=== PATIENT | male | born 1970 | race Caucasian/White ===

== ENCOUNTER 2021-12-16 19:42 | Inpatient (IN) | payer BC ==
[2021-12-16 19:53] VITALS: TEMP 97.9
[2021-12-16 20:28] LABS: Basophils # (A) 0.1 k/uL (0-0.2); Basophils % (A) 1 %; Eosinophils # (A) 0.1 k/uL (0-0.7); Eosinophils % (A) 2 %; HCT 47.6 % (39.0-53.0); Lymphocytes # (A) 2.2 k/uL (1.0-4.8); Lymphocytes % (A) 38 %; MCH 29.5 pg (25.0-35.0); MCHC 33.7 g/dL (31.0-37.0); MCV 87.6 fL (80.0-100.0); Mean Platelet Volume 8.1; Monocytes # (A) 0.4 k/uL (0-1.0); Monocytes % (A) 8 %; Neutrophils % (A) 50 %; Platelet Count 177 k/uL (150-450); RBC 5.43 m/uL (4.30-5.90); RDW 12.9 % (11.5-15.5); WBC 5.9 k/uL (3.8-10.6)
--- NOTE | 2021-12-16 20:36 | ED ---
General Adult HPI - General Chief complaint: Chest Pain Stated complaint: Chest Pain Time Seen by Provider: 12/16/21 20:33 Source: patient, RN notes reviewed Mode of arrival: wheelchair Limitations: no limitations - History of Present Illness Initial comments: This is a pleasant 51-year-old male with a questionable history of atrial fibrillation. Patient states she's been feeling weak and lightheaded today. Patient also states he is having some palpitations. Patient states he skipped his metoprolol. Denying any overt chest pain.Patient states in addition to the palpitations she was having some chest discomfort which actually has resolved at this point. Patient does not take a daily aspirin. History of SVT and atrial fibrillation. Not anticoagulated. No thyroid issues. Generalized weakness and lightheadedness, No headache, no fever or chills, no changes in vision or hearing, no sore throat or difficulty with speech, no neck pain, no chest pain or shortness of breath, no abdominal pain, no nausea or vomiting, no changes in urination or bowel movements, no numbness or tingling, no extremity pain, no skin rashes or lesions. NOTE that this patient had a events similar to this about 12 weeks ago when he was in [place]. Apparently he was diagnosed with SVT. Patient states he converted with adenosine. Patient then had a follow-up with Dr. Coffman here in [place]. He was put on metoprolol preventatively. It sounds like he is on 50 mg XL once a day. He did skip a dose today. Patient was asymptomatic prior to this happening. Patient also states he had a episode of "atrial fibrillation" about 20 years ago. Patient is not anticoagulated - Related Data Previous Rx's Medication Instructions Recorded Metoprolol Succinate (ER) [Toprol 50 mg PO DAILY #30 tab 12/17/21 XL] Allergies Allergy/AdvReac Type Severity Reaction Status Date / Time No Known Allergies Allergy Verified 12/16/21 21:48 Review of Systems ROS Statement: Those systems with pertinent positive or pertinent negative responses have been documented in the HPI. ROS Other: All systems not noted in ROS Statement are negative. Past Medical History Past Medical History: Atrial Fibrillation History of Any Multi-Drug Resistant Organisms: None Reported Past Surgical History: No Surgical Hx Reported Past Psychological History: No Psychological Hx Reported Smoking Status: Never smoker Past Alcohol Use History: Occasional Past Drug Use History: None Reported General Exam Limitations: no limitations General appearance: alert, in no apparent distress Head exam: Present: atraumatic, normocephalic, normal inspection Eye exam: Present: normal appearance, PERRL, EOMI. Absent: scleral icterus, conjunctival injection, periorbital swelling ENT exam: Present: normal exam, normal oropharynx, mucous membranes moist. Absent: normal external ear exam Neck exam: Present: normal inspection. Absent: tenderness, meningismus, lymphadenopathy Respiratory exam: Present: normal lung sounds bilaterally. Absent: respiratory distress, wheezes, rales, rhonchi, stridor, chest wall tenderness, accessory muscle use Cardiovascular Exam: Present: normal rhythm, irregular rhythm, normal heart sounds. Absent: systolic murmur, diastolic murmur, rubs, gallop, clicks GI/Abdominal exam: Present: soft, normal bowel sounds. Absent: distended, tende rness, guarding, rebound, rigid Extremities exam: Present: normal inspection, full ROM, normal capillary refill. Absent: tenderness, pedal edema, joint swelling, calf tenderness Back exam: Present: normal inspection Neurological exam: Present: alert, oriented X3, CN II-XII intact Psychiatric exam: Present: normal affect, normal mood Skin exam: Present: warm, dry, intact, normal color. 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 ] Respiratory 22 Rate Blood Pressure 123/71 O2 Sat by Pulse 98 Oximetry 12/16/21 12/17/21 12/17/21 23:23 01:44 06:16 Temperature Pulse Rate 86 89 67 Pulse Rate [ Car Unloader Helper ] Respiratory 18 20 16 Rate Blood Pressure 111/70 114/85 117/76 O2 Sat by Pulse 95 97 96 Oximetry 12/17/21 09:19 Temperature Pulse Rate 73 Pulse Rate [ Car Unloader Helper ] Respiratory 16 Rate Blood Pressure 126/96 O2 Sat by Pulse 98 Oximetry - Reevaluation(s) Reevaluation #1: 12/16/21 21:37 Medical record is reviewed Symptoms are improved here in the emergency department Patient is informed of results and questions answered Patient in no distress Reevaluation #2: 12/16/21 22:42 Case discussed with the on-call hospitalist from [facility]. Admitted to Dr. hurley EKG Findings - EKG Comments: EKG Findings:: EKG done in 1955 and regular attending physician shows atrial fibrillation with rapid ventricular response, rate of 149, no acute ST or T-wave changes. Normal axis. Normal intervals otherwise. Normal QRS. No comparison study Medical Decision Making - Medical Decision Making Patient presents with atrial fibrillation with RVR. Has a questionable history of atrial fibrillation versus SVT. It sounds wake he was at a [place] hospital about 4 weeks ago and had adenosine which converted his SVT. He was kept in the hospital overnight. 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 No other health issues. Has no primary care provider. Patient had chest discomfort which actually resolved prior to him coming in the waiting room. This had lasted an hour or so. The case was discussed in detail with ED attending physician. Presentation, findings, treatment plan discussed in detail. Patient was heparinized in the ER. Given a bolus of Cardizem. Cardizem drip was also home. I'm going to consider giving the patient his regular dose of metoprolol XL. The case was discussed in detail with ED attending physician. Presentation, findings, treatment plan discussed in detail. 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 - Lab Data Result diagrams: 12/17/21 05:42 12/17/21 05:42 Lab Results 12/16/21 12/16/21 12/16/21 Range/Units 20:14 20:14 20:14 WBC 5.9 (3.8-10.6) k/uL RBC 5.43 (4.30-5.90) m/uL Hgb 16.0 (13.0-17.5) gm/dL Hct 47.6 (39.0-53.0) % MCV 87.6 (80.0-100.0) fL MCH 29.5 (25.0-35.0) pg MCHC 33.7 (31.0-37.0) g/dL RDW 12.9 (11.5-15.5) % Plt Count 177 (150-450) k/uL MPV 8.1 Neutrophils % 50 % Lymphocytes % 38 % Monocytes % 8 % Eosinophils % 2 % Basophils % 1 % Neutrophils # 3.0 (1.3-7.7) k/uL Lymphocytes # 2.2 (1.0-4.8) k/uL Monocytes # 0.4 (0-1.0) k/uL Eosinophils # 0.1 (0-0.7) k/uL Basophils # 0.1 (0-0.2) k/uL PT 10.7 (9.0-12.0) sec INR 1.0 (<1.2) APTT 23.5 (22.0-30.0) sec D-Dimer <0.17 (<0.60) mg/L FEU Sodium 141 (137-145) mmol/L Potassium 4.1 (3.5-5.1) mmol/L Chloride 108 H (98-107) mmol/L Carbon Dioxide 21 L (22-30) mmol/L Anion Gap 12 mmol/L BUN 17 (9-20) mg/dL Creatinine 0.89 (0.66-1.25) mg/dL Est GFR (CKD-EPI)AfAm >90 (>60 ml/min/1.73 sqM) Est GFR (CKD-EPI)NonAf >90 (>60 ml/min/1.73 sqM) Glucose 111 H (74-99) mg/dL Calcium 9.0 (8.4-10.2) mg/dL Magnesium 1.9 (1.6-2.3) mg/dL Total Bilirubin 0.5 (0.2-1.3) mg/dL AST 41 (17-59) U/L ALT 54 H (4-49) U/L Alkaline Phosphatase 56 (38-126) U/L Total Creatine Kinase (55-170) U/L CK-MB (CK-2) (0.0-2.4) ng/mL CK-MB (CK-2) Rel Index Troponin I (0.000-0.034) ng/mL Total Protein 6.9 (6.3-8.2) g/dL Albumin 4.4 (3.5-5.0) g/dL TSH (0.465-4.680) mIU/L 12/16/21 12/16/21 Range/Units 20:14 20:14 WBC (3.8-10.6) k/uL RBC (4.30-5.90) m/uL Hgb (13.0-17.5) gm/dL Hct (39.0-53.0) % MCV (80.0-100.0) fL MCH (25.0-35.0) pg MCHC (31.0-37.0) g/dL RDW (11.5-15.5) % Plt Count (150-450) k/uL MPV Neutrophils % % Lymphocytes % % Monocytes % % Eosinophils % % Basophils % % Neutrophils # (1.3-7.7) k/uL Lymphocytes # (1.0-4.8) k/uL Monocytes # (0-1.0) k/uL Eosinophils # (0-0.7) k/uL Basophils # (0-0.2) k/uL PT (9.0-12.0) sec INR (<1.2) APTT (22.0-30.0) sec D-Dimer (<0.60) mg/L FEU Sodium (137-145) mmol/L Potassium (3.5-5.1) mmol/L Chloride (98-107) mmol/L Carbon Dioxide (22-30) mmol/L Anion Gap mmol/L BUN (9-20) mg/dL Creatinine (0.66-1.25) mg/dL Est GFR (CKD-EPI)AfAm (>60 ml/min/1.73 sqM) Est GFR (CKD-EPI)NonAf (>60 ml/min/1.73 sqM) Glucose (74-99) mg/dL Calcium (8.4-10.2) mg/dL Magnesium (1.6-2.3) mg/dL Total Bilirubin (0.2-1.3) mg/dL AST (17-59) U/L ALT (4-49) U/L Alkaline Phosphatase (38-126) U/L Total Creatine Kinase 301 H (55-170) U/L CK-MB (CK-2) 2.9 H (0.0-2.4) ng/mL CK-MB (CK-2) Rel Index 1.0 Troponin I <0.012 (0.000-0.034) ng/mL Total Protein (6.3-8.2) g/dL Albumin (3.5-5.0) g/dL TSH 0.805 (0.465-4.680) mIU/L - Radiology Data Radiology results: report reviewed, image reviewed Critical Care Time Critical Care Time: Yes (30) Critical Care Time: Atrial fibrillation with rapid ventricular response. Heart rate between 140 and 160. Required Cardizem drip. Admitted to Dr. hurley. Cardiology consultation initiated Disposition Clinical Impression: Atrial fibrillation with RVR, Chest pain Disposition: HOME SELF-CARE Condition: Fair Is patient prescribed a controlled substance at d/c from ED?: No Time of Disposition: 21:38 Decision to Admit Reason: Admit from EC Decision Time: 21:38
[2021-12-16 20:44] LABS: ALT 54 U/L (4-49); AST 41 U/L (17-59); African American GFR (CKD) >90 (>60 ml/min/1.73 sqM); Albumin 4.4 g/dL (3.5-5.0); Alkaline Phosphatase 56 U/L (38-126); Anion Gap 12 mmol/L; Blood Urea Nitrogen 17 mg/dL (9-20); Carbon Dioxide 21 mmol/L (22-30); Chloride 108 mmol/L (98-107); Creatine Kinase 301 U/L (55-170); Glucose 111 mg/dL (74-99); Magnesium 1.9 mg/dL (1.6-2.3); Non-African American GFR(CKD) >90 (>60 ml/min/1.73 sqM); Potassium 4.1 mmol/L (3.5-5.1); Sodium 141 mmol/L (137-145); Total Bilirubin 0.5 mg/dL (0.2-1.3); Total Protein 6.9 g/dL (6.3-8.2)
[2021-12-16 20:56] LABS: Creatine Kinase MB 2.9 ng/mL (0.0-2.4); Troponin I <0.012 ng/mL (0.000-0.034)
[2021-12-16] MEDS ORDERED: DILTIAZEM 5 MG/ML 5 ML VIAL IVP STA (20:57)
[2021-12-16 21:00] LABS: Partial Thromboplastin Time 23.5 sec (22.0-30.0); Prothrombin Time 10.7 sec (9.0-12.0)
[2021-12-16] MEDS ORDERED: DILTIAZEM 125 MG in SODIUM CHLORIDE 0.9% 100 ML IV SCH (21:00)
[2021-12-16] MEDS ORDERED: ASPIRIN 81 MG PO STA (21:00)
--- NOTE | 2021-12-16 21:18 | XR ---
EXAMINATION TYPE: XR chest 2V DATE OF EXAM: 12/16/2021 COMPARISON: NONE HISTORY: Weakness TECHNIQUE: 2 views FINDINGS: Heart and mediastinum are normal. Lungs are clear. Diaphragm is normal. Bony thorax appears normal. There are chest leads. IMPRESSION: Normal chest.
[2021-12-16] MEDS ORDERED: DILTIAZEM DRIP BOLUS FROM BAG 1 MG SOLN IV ONE (21:24)
[2021-12-16] MEDS ORDERED: HEPARIN SODIUM 1,000 UN/ML (10ML VL) IV ONE (21:38)
[2021-12-16] MEDS ORDERED: HEPARIN SODIUM 1,000 UN/ML (10ML VL) IV PRN (21:38)
[2021-12-16] MEDS ORDERED: HEPARIN SOD,PORK IN 0.45% NACL 25,000 UNIT in 0.45% NACL 1 250ML.BAG IV SCH (21:45)
[2021-12-16] MEDS ORDERED: NALOXONE 0.4 MG/ML 1 ML VIAL IV PRN (22:39)
[2021-12-16] MEDS ORDERED: MORPHINE SULFATE 4 MG/ML SYRINGE IV PRN (22:39)
[2021-12-16] MEDS ORDERED: ACETAMINOPHEN TAB 325 MG TAB PO PRN (22:39)
[2021-12-16] MEDS ORDERED: ACETAMINOPHEN TAB 500 MG TAB PO STA (22:56)
[2021-12-16] MEDS ORDERED: IBUPROFEN 400 MG TAB PO STA (22:56)
[2021-12-16] MEDS: SODIUM CHLORIDE 0.9% 1,000 ML IV SCH (23:22)
[2021-12-17 06:17] VITALS: RESP 16
[2021-12-17 06:30] LABS: Basophils % (A) 1 %; Eosinophils # (A) 0.1 k/uL (0-0.7); Eosinophils % (A) 2 %; HCT 45.4 % (39.0-53.0); HGB 14.6 gm/dL (13.0-17.5); Lymphocytes # (A) 2.4 k/uL (1.0-4.8); Lymphocytes % (A) 45 %; MCH 28.8 pg (25.0-35.0); MCHC 32.2 g/dL (31.0-37.0); MCV 89.4 fL (80.0-100.0); Monocytes # (A) 0.4 k/uL (0-1.0); Monocytes % (A) 7 %; Neutrophils # (A) 2.4 k/uL (1.3-7.7); Neutrophils % (A) 44 %; Platelet Count 150 k/uL (150-450); RBC 5.08 m/uL (4.30-5.90); WBC 5.4 k/uL (3.8-10.6)
[2021-12-17 06:42] LABS: INR 1.1 (<1.2); Prothrombin Time 11.4 sec (9.0-12.0)
[2021-12-17 06:43] LABS: African American GFR (CKD) >90 (>60 ml/min/1.73 sqM); Anion Gap 4 mmol/L; Blood Urea Nitrogen 22 mg/dL (9-20); Calcium 8.3 mg/dL (8.4-10.2); Carbon Dioxide 27 mmol/L (22-30); Chloride 109 mmol/L (98-107); Glucose 89 mg/dL (74-99); Non-African American GFR(CKD) >90 (>60 ml/min/1.73 sqM); Potassium 4.3 mmol/L (3.5-5.1); Sodium 140 mmol/L (137-145)
[2021-12-17] MEDS ORDERED: METOPROLOL SUCCINATE (ER) 50 MG TAB.ER.24H PO SCH (09:00)
[2021-12-17] MEDS ORDERED: FAMOTIDINE 20 MG/2 ML VIAL IV SCH (09:00)
--- NOTE | 2021-12-17 10:28 | P.HPIM ---
History of Present Illness This is a pleasant 51 years old male with past medical history of atrial fibrillation on metoprolol only with no anticoagulation. Presents because of palpitation. Patient states that he has history of A. 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 Yesterday he missed his dose of metoprolol and that time during the day he felt palpitation, he checked his heart rate and was somewhere between 215 and 270/m, he felt lightheadedness when he came to the hospital but he denies any other dizziness, syncope, no chest pain or dyspnea, no coughing. No change in urine or bowel habits. No fever. He denies smoking or illicit drugs. Drinks alcohol occasionally. On admission patient Vitas looks stable however he has 1 episode of tachycardia at 167. Currently heart rate is 67 and rest of vitals are stable. And patient is afebrile unremarkable cbc, inr, bmp and liver enzymes. troponin i negative 3. tsh is normal 0.8. Chest x-ray: Process. EKG showing atrial fibrillation at 149 Admission he was started on Cardizem drip and heparin drip and normal saline at 75 mL/h Review of Systems CONSTITUTIONAL: No fever, no malaise, no fatigue. HEENT: No recent visual problems or hearing problems. Denied any sore throat. CARDIOVASCULAR: No orthopnea, PND, no palpitations, no syncope. PULMONARY: No shortness of breath, no cough, no hemoptysis. GASTROINTESTINAL: No diarrhea, no nausea, no vomiting, no abdominal pain. Normoactive bowel sounds. NEUROLOGICAL: No headaches, no weakness, no numbness. HEMATOLOGICAL: Denies any bleeding or petechiae. GENITOURINARY: Denies any burning micturition, frequency, or urgency. MUSCULOSKELETAL/RHEUMATOLOGICAL: Denies any joint pain, swelling, or any muscle pain. ENDOCRINE: Denies any polyuria or polydipsia. Past Medical History Past Medical History: Atrial Fibrillation History of Any Multi-Drug Resistant Organisms: None Reported Past Surgical History: No Surgical Hx Reported Past Psychological History: No Psychological Hx Reported Smoking Status: Never smoker Past Alcohol Use History: Occasional Past Drug Use History: None Reported Medications and Allergies Home Medications Medication Instructions Recorded Confirmed Type Metoprolol Succinate (ER) [Toprol 50 mg PO DAILY 12/16/21 12/16/21 History Xl] Allergies Allergy/AdvReac Type Severity Reaction Status Date / Time No Known Allergies Allergy Verified 12/16/21 21:48 Physical Exam Vitals: Vital Signs Temp Pulse Pulse Resp BP Pulse Ox 12/17/21 06:16 67 16 117/76 96 12/17/21 01:44 89 20 114/85 97 12/16/21 23:23 86 18 111/70 95 12/16/21 21:20 167 H 12/16/21 20:35 190 H 12/16/21 19:48 97.9 F 61 22 123/71 98 Intake and Output 12/16/21 12/17/21 12/17/21 22:59 06:59 14:59 Intake Total 74.667 Balance 74.667 Intake: Intake, IV Titration 74.667 Amount Heparin Sod,Pork in 0.45% 74.667 NaCl 25,000 unit In 0.45 % NaCl 1 250ml.bag @ 9. 2631 UNITS/KG/HR 10 mls/ hr IV .Q24H [facility] Rx#: [id number] Other: Weight 107.955 kg GENERAL: The patient is alert and oriented x3, not in any acute distress. Well developed, well nourished. HEENT: Pupils are round and equally reacting to light. EOMI. No scleral icterus. No conjunctival pallor. Normocephalic, atraumatic. No pharyngeal erythema. No thyromegaly. CARDIOVASCULAR: S1 and S2 present. No murmurs, rubs, or gallops. PULMONARY: Chest is clear to auscultation, no wheezing or crackles. ABDOMEN: Soft, nontender, nondistended, normoactive bowel sounds. No palpable organomegaly. MUSCULOSKELETAL: No joint swelling or deformity. EXTREMITIES: No cyanosis, clubbing, or pedal edema. NEUROLOGICAL: Gross neurological examination did not reveal any focal deficits. SKIN: No rashes. No petechiae Results CBC & Chem 7: 12/17/21 05:42 12/17/21 05:42 Labs: Abnormal Lab Results - Last 24 Hours (Table) 12/16/21 12/16/21 12/17/21 Range/Units 20:14 20:14 05:42 APTT (22.0-30.0) sec Chloride 108 H 109 H (98-107) mmol/L Carbon Dioxide 21 L (22-30) mmol/L BUN 22 H (9-20) mg/dL Glucose 111 H (74-99) mg/dL Calcium 8.3 L (8.4-10.2) mg/dL ALT 54 H (4-49) U/L Total Creatine Kinase 301 H (55-170) U/L CK-MB (CK-2) 2.9 H (0.0-2.4) ng/mL 12/17/21 Range/Units 05:42 APTT 35.0 H (22.0-30.0) sec Chloride (98-107) mmol/L Carbon Dioxide (22-30) mmol/L BUN (9-20) mg/dL Glucose (74-99) mg/dL Calcium (8.4-10.2) mg/dL ALT (4-49) U/L Total Creatine Kinase (55-170) U/L CK-MB (CK-2) (0.0-2.4) ng/mL Assessment and Plan Assessment: Paroxysmal atrial fibrillation with rapid ventricular rate, not on anticoagulation Non-adherence to therapy Plan: This is a pleasant 51 years old male presents with chest pain and atrial fibrillation Continue with metoprolol Continue with heparin drip Continue with Cardizem drip Check echocardiogram Cardiology consult Labs and medication were reviewed.. Continue same treatment. Continue with sym ptomatic treatment. Resume home medication. Monitor lytes and vitals. DVT and GI prophylaxis. Further recommendations depends on the clinical course of the patient DVT prophylaxis: heparin GI Prophylaxis: Pepcid PT/OT: Pending Prognosis is guarded
--- NOTE | 2021-12-17 12:15 | P.CRDCN ---
History of Present Illness History of present illness: HISTORY OF PRESENTING ILLNESS This is a pleasant 51-year-old male past medical history significant for SVT. He follows in the office with Dr. Coffman. We have been asked to see in consult ation for atrial fibrillation with RVR. Patient presents to the emergency department with complaints of palpitations and tachycardia. He was sitting at the dinner table yesterday with his family. After dinner, experienced palpitations. He checked his HR with his phone and it was in the 120s-140s. He went to the ER for further evaluation. He was found to be in atrial fibrillation with RVR. Started on IV Cardizem and IV Heparin. He converted to sinus mechanism. He did drink 2 beers yesterday, no further alcohol. He denies tobacco use. He was in [place] for a job a few months ago, he had palpitations, went to the ER and was diagnosed with SVT, was given adenosine and converted. He followed up with Dr. Coffman here. He denies history of CAD, hypertension, [place], Stroke, Diabetes, dyslipidemia. His family history includes father has history of A fib. DIAGNOSTICS EKG reveals atrial fibrillation HR 149 with RVR, non-specific T wave abnormalities. Telemetry tracings indicate sinus mechanism HR 60s Chest xray no acute cardiopulmonary process Laboratory reviewed, d-dimer negative, CBC unremarkable, troponin negative 3, sodium 140, potassium 4.3, BUN 22, serum creatinine 0.8, magnesium 2.0, TSH within normal limits Current home cardiac medications include metoprolol succinate 50mg daily. REVIEW OF SYSTEMS At the time of my exam: CONSTITUTIONAL: Denies fever or chills. CARDIOVASCULAR: Denies chest pain, shortness of breath, orthopnea, PND or palpitations. RESPIRATORY: Denies cough. GASTROINTESTINAL: Denies abdominal pain, diarrhea, constipation, nausea or vomiting. MUSCULOSKELETAL: Denies myalgias. NEUROLOGIC: Denies numbness, tingling, headacbe or weakness. ENDOCRINE: Denies fatigue, weight change, polydipsia or polyurina. GENITOURINARY: Denies burning, hematuria or urgency with micturation. HEMATOLOGIC: Denies history of anemia or bleeding. PHYSICAL EXAMINATION Blood pressure 126/96 HR 73 afebrile 98% on room air CONSTITUTIONAL: No apparent distress. HEENT: Head is normocephalic. Pupils are equal, round. Sclerae anicteric. Mucous membranes of the mouth are moist. No JVD. No carotid bruit. CHEST EXAMINATION: Lungs are clear to auscultation. No chest wall tenderness is noted on palpation or with deep breathing. HEART EXAMINATION: Regular rate and rhythm. S1, S2 heard. No murmurs, gallops or rub. ABDOMEN: Soft, nontender. Positive bowel sounds. EXTREMITIES: 2+ peripheral pulses, no lower extremity edema and no calf tenderness. NEUROLOGIC EXAMINATION: Patient is awake, alert and oriented x3. ASSESSMENT Paroxysmal atrial fibrillation with RVR -[id number] score 0 History of SVT PLAN Echocardiogram revealed EF 55-60%, no significant wall motion abnormalities. Continue metoprolol succinate Ok to discharge from a cardiology perspective and follow up outpatient with Dr. Coffman in 1 week. Nurse practitioner note has been reviewed by physician. Signing provider agrees with the documented findings, assessment, and plan of care. Past Medical History Past Medical History: Atrial Fibrillation History of Any Multi-Drug Resistant Organisms: None Reported Past Surgical History: No Surgical Hx Reported Past Psychological History: No Psychological Hx Reported Smoking Status: Never smoker Past Alcohol Use History: Occasional Past Drug Use History: None Reported Medications and Allergies Home Medications Medication Instructions Recorded Confirmed Type Metoprolol Succinate (ER) [Toprol 50 mg PO DAILY 12/16/21 12/16/21 History XL] Allergies Allergy/AdvReac Type Severity Reaction Status Date / Time No Known Allergies Allergy Verified 12/16/21 21:48 Physical Exam Vitals: Vital Signs Temp Pulse Pulse Resp BP Pulse Ox 12/17/21 06:16 67 16 117/76 96 12/17/21 01:44 89 20 114/85 97 12/16/21 23:23 86 18 111/70 95 12/16/21 21:20 167 H 12/16/21 20:35 190 H 12/16/21 19:48 97.9 F 61 22 123/71 98 Intake and Output 12/16/21 12/17/21 12/17/21 22:59 06:59 14:59 Intake Total 74.667 Balance 74.667 Intake: Intake, IV Titration 74.667 Amount Heparin Sod,Pork in 0.45% 74.667 NaCl 25,000 unit In 0.45 % NaCl 1 250ml.bag @ 9. 2631 UNITS/KG/HR 10 mls/ hr IV .Q24H [facility] Rx#: [id number] Other: Weight 107.955 kg Results 12/17/21 05:42 12/17/21 05:42 Cardiac Enzymes 12/16/21 12/16/21 12/16/21 Range/Units 20:14 20:14 23:46 AST 41 (17-59) U/L CK-MB (CK-2) 2.9 H (0.0-2.4) ng/mL Troponin I <0.012 0.018 (0.000-0.034) ng/mL 12/17/21 Range/Units 05:42 AST (17-59) U/L CK-MB (CK-2) (0.0-2.4) ng/mL Troponin I 0.030 (0.000-0.034) ng/mL Coagulation 12/16/21 12/17/21 Range/Units 20:14 05:42 PT 10.7 11.4 (9.0-12.0) sec APTT 23.5 35.0 H (22.0-30.0) sec CBC 12/16/21 12/17/21 Range/Units 20:14 05:42 WBC 5.9 5.4 (3.8-10.6) k/uL RBC 5.43 5.08 (4.30-5.90) m/uL Hgb 16.0 14.6 (13.0-17.5) gm/dL Hct 47.6 45.4 (39.0-53.0) % Plt Count 177 150 (150-450) k/uL Comprehensive Metabolic Panel 12/16/21 12/17/21 Range/Units 20:14 05:42 Sodium 141 140 (137-145) mmol/L Potassium 4.1 4.3 (3.5-5.1) mmol/L Chloride 108 H 109 H (98-107) mmol/L Carbon Dioxide 21 L 27 (22-30) mmol/L BUN 17 22 H (9-20) mg/dL Creatinine 0.89 0.88 (0.66-1.25) mg/dL Glucose 111 H 89 (74-99) mg/dL Calcium 9.0 8.3 L (8.4-10.2) mg/dL AST 41 (17-59) U/L ALT 54 H (4-49) U/L Alkaline Phosphatase 56 (38-126) U/L Total Protein 6.9 (6.3-8.2) g/dL Albumin 4.4 (3.5-5.0) g/dL Current Medications Generic Name Dose Route Start Last Admin Trade Name Freq PRN Reason Stop Dose Admin Acetaminophen 650 mg 12/16/21 22:39 Acetaminophen Tab 325 Mg Tab PO Q6HR PRN Mild Pain or Fever > 100.5 Heparin Sodium (Porcine) 0 unit 12/16/21 21:38 12/17/21 06:50 Heparin Sodium 1,000 Un/Ml (10ml Vl) IV 2,698.875 unit PER PROTOCOL PRN Administration Low PTT Protocol Diltiazem HCl 125 mg/ Sodium 125 mls @ 5 mls/hr 12/16/21 21:00 12/16/21 21:23 Chloride IV 5 mg/hr .Q24H IR[facility] 5 mls/hr Administration 5 MG/HR Heparin Sodium/Sodium Chloride 250 mls @ 10 mls/hr 12/16/21 21:45 12/17/21 0 6:49 25,000 unit/ Sodium Chloride IV 11.26 units/kg/hr .Q24H [facility] 12.156 mls/hr Titration Protocol 9.2631 UNITS/KG/HR Sodium Chloride 1,000 mls @ 75 mls/hr 12/16/21 22:45 12/16/21 23:22 Saline 0.9% IV 75 mls/hr .[id number] IRMA Administration Morphine Sulfate 4 mg 12/16/21 22:39 Morphine Sulfate 4 Mg/Ml Syringe IV Q4HR PRN Severe Pain Naloxone HCl 0.2 mg 12/16/21 22:39 Naloxone 0.4 Mg/Ml 1 Ml Vial IV Q2M PRN Opioid Reversal Intake and Output 12/16/21 12/17/21 12/17/21 22:59 06:59 14:59 Intake Total 74.667 Balance 74.667 Intake: Intake, IV Titration 74.667 Amount Heparin Sod,Pork in 0.45% 74.667 NaCl 25,000 unit In 0.45 % NaCl 1 250ml.bag @ 9. 2631 UNITS/KG/HR 10 mls/ hr IV .Q24H [facility] Rx#: [id number] Other: Weight 107.955 kg 12/17/21 05:42 12/17/21 05:42
--- NOTE | 2021-12-17 13:13 | CA ---
Transthoracic Echo Report Name: Lv Cruz Age: 51 Gender: M : 1970 Exam Date: 12/17/2021 09:37 Exam Location: [facility] Ht (in): 71 Wt (lb): 238 Ordering Physician: Dena Cooney Attending/Referring Phys: Debone Supervisor Ina Kebede RDCS Procedure CPT: Indications: a fib Cardiac Hx: Technical Quality: Good Contrast 1: Total Dose (mL): Contrast 2: Total Dose (mL): MEASUREMENTS (Male / Female) Normal Values 2D ECHO LV Diastolic Diameter PLAX 4.9 cm 4.2 - 5.9 / 3.9 - 5.3 cm LV Systolic Diameter PLAX 2.8 cm IVS Diastolic Thickness 0.9 cm 0.6 - 1.0 / 0.6 - 0.9 cm LVPW Diastolic Thickness 0.9 cm 0.6 - 1.0 / 0.6 - 0.9 cm LV Relative Wall Thickness 0.4 RV Internal Dim ED PLAX 2.1 cm LA Volume 49.4 cm??? 18 - 58 / 22 - 52 cm??? M-MODE Aortic Root Diameter MM 3.9 cm LA Systolic Diameter MM 2.5 cm LA Ao Ratio MM 0.6 MV E Point Septal Separation 1.9 cm AV Cusp Separation MM 1.9 cm DOPPLER AV Peak Velocity 95.6 cm/s AV Peak Gradient 3.7 mmHg MV Area PHT 4.6 cm??? MR Peak Velocity 90.4 cm/s MR Peak Gradient 3.3 mmHg Mitral E Point Velocity 78.6 cm/s Mitral A Point Velocity 80.8 cm/s Mitral E to A Ratio 1.0 MV Deceleration Time 165.3 ms MV E' Velocity 6.5 cm/s Mitral E to MV E' Ratio 12.0 TR Peak Velocity 136.2 cm/s TR Peak Gradient 7.4 mmHg Right Ventricular Systolic Press 12.4 mmHg FINDINGS Left Ventricle Normal Left ventricular size, wall thickness, systolic function with no obvious regional wall motion abnormalities. Normal Left ventricular diastolic filling pattern. Left ventricular ejection fraction is estimated at 55-60_ %. Right Ventricle The right ventricle is normal in size and function. Right Atrium The right atrium is normal in size. Left Atrium The left atrium is normal in size. Mitral Valve Structurally normal mitral valve without significant stenosis or prolapse. There is trace mitral regurgitation. Aortic Valve Structurally normal aortic valve without significant sclerosis or stenosis. There is no aortic regurgitation. Tricuspid Valve Structurally normal tricuspid valve without significant stenosis. Pulmonary artery systolic pressure is normal. Trace tricuspid regurgitation. Pulmonic Valve Structurally normal pulmonic valve without significant stenosis. There is no pulmonic regurgitation. Pericardium Normal pericardium without effusion. Aorta Normal aortic root dimension. CONCLUSIONS Normal left ventricular thickness Normal left ventricular function with ejection fraction 55-60% Trace mitral regurgitation Trace tricuspid regurgitation Previewed by: Dr. Candido De Jesus DO (Electronically Signed) Final Date: 17 Dec 2021 13:12
[2021-12-17 13:38] VITALS: BP 126/96; PULSE 73
[2021-12-17] MEDS: SODIUM CHLORIDE 0.9% 1,000 ML IV SCH (13:40)
== END 2021-12-17 17:39 | disposition home or self-care (01) | DRG 310 ==
LOC: EC 19:42 → 3SCARD 23:17
PROVIDERS: ADMIT Internal Medicine; ATTEND Internal Medicine
DX: I47.1 Supraventricular tachycardia (principal); I48.0 Paroxysmal atrial fibrillation; I08.1 Rheumatic disorders of both mitral and tricuspid valves; R00.2 Palpitations
CPT/HCPCS: 36415; 71046; 80048; 80053; 82550; 82553; 83735; 84443; 84484; 85025; 85379; 85610; 85730; 93005; 93306; 96374; 96375; 96376; 99291

== ENCOUNTER 2022-05-27 15:40 | Inpatient (IN) | payer BC ==
[2022-05-27] MEDS ORDERED: MIDAZOLAM 1 MG/ML 5 ML VIAL IV STA (16:16)
[2022-05-27] MEDS ORDERED: ADENOSINE 3 MG/ML 2 ML VIAL IVP STA (16:18)
--- NOTE | 2022-05-27 16:26 | ED ---
General Adult HPI - General Chief complaint: Chest Pain Stated complaint: Chest Pain,SOB Time Seen by Provider: 05/27/22 16:10 Source: patient, RN notes reviewed, old records reviewed Mode of arrival: wheelchair - History of Present Illness Initial comments: This is a 52-year-old male who presents emergency Department complaining that he has having a fast heart rate he feels short of breath per patient states this happened multiple times before and he said to come in to be given adenosine to convert her. Patient states she has an underlying rhythm of atrial fibrillation. Patient denies any recent fever chills or cough. Patient states he has some chest pressure. Patient denies abdominal pain. Patient denies any any vomiting or diarrhea. Patient denies any recent illness. Patient denies any lightheadedness or dizziness. Patient denies headache patient denies num bness weakness. - Related Data Previous Rx's Medication Instructions Recorded Metoprolol Succinate (ER) [Toprol 50 mg PO DAILY #30 tab 12/17/21 XL] Allergies Allergy/AdvReac Type Severity Reaction Status Date / Time No Known Allergies Allergy Verified 05/27/22 17:02 Review of Systems ROS Statement: Those systems with pertinent positive or pertinent negative responses have been documented in the HPI. ROS Other: All systems not noted in ROS Statement are negative. Past Medical History Past Medical History: Atrial Fibrillation History of Any Multi-Drug Resistant Organisms: None Reported Past Surgical History: No Surgical Hx Reported Past Psychological History: No Psychological Hx Reported Smoking Status: Never smoker Past Alcohol Use History: Occasional Past Drug Use History: None Reported General Exam - General Exam Comments Initial Comments: GENERAL: Patient is well-developed and well-nourished. Patient is nontoxic and well- hydrated and is in mild distress. ENT: Neck is soft and supple. No significant lymphadenopathy is noted. Oropharynx is clear. Moist mucous membranes. Neck has full range of motion without eliciting any pain. EYES: The sclera were anicteric and conjunctiva were pink and moist. Extraocular movements were intact and pupils were equal round and reactive to light. Eyelids were unremarkable. PULMONARY: Unlabored respirations. Good breath sounds bilaterally. No audible rales rhonchi or wheezing was noted. CARDIOVASCULAR: Patient is tachycardic at about 180 beats a minute. ABDOMEN: Soft and nontender with normal bowel sounds. SKIN: Skin is clear with no lesions or rashes and otherwise unremarkable. NEUROLOGIC: Patient is alert and oriented x3. Cranial nerves II through XII are grossly intact. Motor and sensory are also intact. Normal speech, volume and content. Symmetrical smile. MUSCULOSKELETAL: Normal extremities with adequate strength and full range of motion. LYMPHATICS: No significant lymphadenopathy is noted PSYCHIATRIC: Normal psychiatric evaluation. Course Vital Signs 05/27/22 05/27/22 05/27/22 15:59 16:23 16:33 Temperature 97.8 F Pulse Rate 222 H 152 H 133 H Respiratory 18 22 20 Rate Blood Pressure 125/94 104/66 96/70 O2 Sat by Pulse 97 96 97 Oximetry 05/27/22 18:02 Temperature Pulse Rate 113 H Respiratory 20 Rate Blood Pressure 114/90 O2 Sat by Pulse 97 Oximetry Medical Decision Making - Medical Decision Making EKG was interpreted by me. EKG shows supraventricular tachycardia 220 bpm QRS is 82 QT interval is 183 QTC is 287. EKG shows some ST segment depression in leads V4 V5 V6 Patient was given adenosine 6 mg and converted the patient into what appeared to be atrial fibrillation so repeat EKG was done. I interpreted the second EKG it showed atrial fibrillation with rapid ventricular response at 127 bpm QRS is a 70 Q-T intervals 266 QTC is 341. Patient's EKG shows no ST segment elevation or depression. Patient's heart rate didn't slow down and another EKG was done I interpreted this EKG. It shows atrial fibrillation with rapid ventricular response at 137 bpm QRS is 86 QT interval is 283 QTC is 363. Patient's EKG shows no ST segment elevation or depression. Chest x-ray as interpreted by me. Chest x-ray shows no acute normalities. I spoke with sounds physician's agreed to admit the patient admitted the patient I wrote admitting orders. - Lab Data Result diagrams: 05/27/22 16:21 05/27/22 16:21 Lab Results 05/27/22 05/27/22 05/27/22 Range/Units 16:21 16:21 16:21 WBC 7.8 (3.8-10.6) k/uL RBC 5.86 (4.30-5.90) m/uL Hgb 17.7 H (13.0-17.5) gm/dL Hct 50.3 (39.0-53.0) % MCV 85.8 (80.0-100.0) fL MCH 30.2 (25.0-35.0) pg MCHC 35.2 (31.0-37.0) g/dL RDW 12.9 (11.5-15.5) % Plt Count 178 (150-450) k/uL MPV 9.0 Neutrophils % 58 % Lymphocytes % 30 % Monocytes % 7 % Eosinophils % 3 % Basophils % 1 % Neutrophils # 4.5 (1.3-7.7) k/uL Lymphocytes # 2.4 (1.0-4.8) k/uL Monocytes # 0.6 (0-1.0) k/uL Eosinophils # 0.2 (0-0.7) k/uL Basophils # 0.1 (0-0.2) k/uL PT 10.8 (9.0-12.0) sec INR 1.0 (<1.2) APTT 24.5 (22.0-30.0) sec Sodium 144 (137-145) mmol/L Potassium 4.2 (3.5-5.1) mmol/L Chloride 111 H (98-107) mmol/L Carbon Dioxide 23 (22-30) mmol/L Anion Gap 10 mmol/L BUN 20 (9-20) mg/dL Creatinine 0.95 (0.66-1.25) mg/dL Est GFR (CKD-EPI)AfAm >90 (>60 ml/min/1.73 sqM) Est GFR (CKD-EPI)NonAf >90 (>60 ml/min/1.73 sqM) Glucose 124 H (74-99) mg/dL Calcium 9.3 (8.4-10.2) mg/dL Magnesium 2.2 (1.6-2.3) mg/dL Total Bilirubin 0.3 (0.2-1.3) mg/dL AST 48 (17-59) U/L ALT 79 H (4-49) U/L Alkaline Phosphatase 87 (38-126) U/L Troponin I (0.000-0.034) ng/mL Total Protein 7.3 (6.3-8.2) g/dL Albumin 4.7 (3.5-5.0) g/dL Urine Opiates Screen (NotDetected) Ur Oxycodone Screen (NotDetected) Urine Methadone Screen (NotDetected) Ur Propoxyphene Screen (NotDetected) Ur Barbiturates Screen (NotDetected) U Tricyclic Antidepress (NotDetected) Ur Phencyclidine Scrn (NotDetected) Ur Amphetamines Screen (NotDetected) U Methamphetamines Scrn (NotDetected) U Benzodiazepines Scrn (NotDetected) Urine Cocaine Screen (NotDetected) U Marijuana (THC) Screen (NotDetected) 05/27/22 05/27/22 Range/Units 16:21 16:56 WBC (3.8-10.6) k/uL RBC (4.30-5.90) m/uL Hgb (13.0-17.5) gm/dL Hct (39.0-53.0) % MCV (80.0-100.0) fL MCH (25.0-35.0) pg MCHC (31.0-37.0) g/dL RDW (11.5-15.5) % Plt Count (150-450) k/uL MPV Neutrophils % % Lymphocytes % % Monocytes % % Eosinophils % % Basophils % % Neutrophils # (1.3-7.7) k/uL Lymphocytes # (1.0-4.8) k/uL Monocytes # (0-1.0) k/uL Eosinophils # (0-0.7) k/uL Basophils # (0-0.2) k/uL PT (9.0-12.0) sec INR (<1.2) APTT (22.0-30.0) sec Sodium (137-145) mmol/L Potassium (3.5-5.1) mmol/L Chloride (98-107) mmol/L Carbon Dioxide (22-30) mmol/L Anion Gap mmol/L BUN (9-20) mg/dL Creatinine (0.66-1.25) mg/dL Est GFR (CKD-EPI)AfAm (>60 ml/min/1.73 sqM) Est GFR (CKD-EPI)NonAf (>60 ml/min/1.73 sqM) Glucose (74-99) mg/dL Calcium (8.4-10.2) mg/dL Magnesium (1.6-2.3) mg/dL Total Bilirubin (0.2-1.3) mg/dL AST (17-59) U/L ALT (4-49) U/L Alkaline Phosphatase (38-126) U/L Troponin I 0.019 (0.000-0.034) ng/mL Total Protein (6.3-8.2) g/dL Albumin (3.5-5.0) g/dL Urine Opiates Screen Not Detected (NotDetected) Ur Oxycodone Screen Not Detected (NotDetected) Urine Methadone Screen Not Detected (NotDetected) Ur Propoxyphene Screen Not Detected (NotDetected) Ur Barbiturates Screen Not Detected (NotDetected) U Tricyclic Antidepress Not Detected (NotDetected) Ur Phencyclidine Scrn Not Detected (NotDetected) Ur Amphetamines Screen Not Detected (NotDetected) U Methamphetamines Scrn Not Detected (NotDetected) U Benzodiazepines Scrn Not Detected (NotDetected) Urine Cocaine Screen Not Detected (NotDetected) U Marijuana (THC) Screen Not Detected (NotDetected) Critical Care Time Critical Care Time: Yes Total Critical Care Time: 35 Disposition Clinical Impression: SVT (supraventricular tachycardia), Atrial fibrillation with rapid ventricular response Disposition: ADMITTED IP TO THIS HOSP Is patient prescribed a controlled substance at d/c from ED?: No Referrals: None,Stated [Primary Care Provider] - 1-2 days Time of Disposition: 18:57
[2022-05-27] MEDS ORDERED: DILTIAZEM DRIP BOLUS FROM BAG 1 MG SOLN IV ONE (16:35)
[2022-05-27 16:40] LABS: Basophils # (A) 0.1 k/uL (0-0.2); Basophils % (A) 1 %; Eosinophils # (A) 0.2 k/uL (0-0.7); Eosinophils % (A) 3 %; HCT 50.3 % (39.0-53.0); HGB 17.7 gm/dL (13.0-17.5); Lymphocytes # (A) 2.4 k/uL (1.0-4.8); Lymphocytes % (A) 30 %; MCH 30.2 pg (25.0-35.0); MCHC 35.2 g/dL (31.0-37.0); MCV 85.8 fL (80.0-100.0); Monocytes # (A) 0.6 k/uL (0-1.0); Monocytes % (A) 7 %; Neutrophils # (A) 4.5 k/uL (1.3-7.7); Neutrophils % (A) 58 %; Platelet Count 178 k/uL (150-450); RBC 5.86 m/uL (4.30-5.90); RDW 12.9 % (11.5-15.5); WBC 7.8 k/uL (3.8-10.6)
[2022-05-27] MEDS ORDERED: DILTIAZEM 125 MG in SODIUM CHLORIDE 0.9% 100 ML IV SCH (16:45)
[2022-05-27 16:49] LABS: ALT 79 U/L (4-49); AST 48 U/L (17-59); African American GFR (CKD) >90 (>60 ml/min/1.73 sqM); Albumin 4.7 g/dL (3.5-5.0); Alkaline Phosphatase 87 U/L (38-126); Anion Gap 10 mmol/L; Blood Urea Nitrogen 20 mg/dL (9-20); Calcium 9.3 mg/dL (8.4-10.2); Carbon Dioxide 23 mmol/L (22-30); Chloride 111 mmol/L (98-107); Glucose 124 mg/dL (74-99); Magnesium 2.2 mg/dL (1.6-2.3); Non-African American GFR(CKD) >90 (>60 ml/min/1.73 sqM); Potassium 4.2 mmol/L (3.5-5.1); Sodium 144 mmol/L (137-145); Total Bilirubin 0.3 mg/dL (0.2-1.3); Total Protein 7.3 g/dL (6.3-8.2)
[2022-05-27 16:56] LABS: Partial Thromboplastin Time 24.5 sec (22.0-30.0); Prothrombin Time 10.8 sec (9.0-12.0)
--- NOTE | 2022-05-27 17:25 | XR ---
EXAMINATION TYPE: XR chest 2V DATE OF EXAM: 05/27/2022 COMPARISON: 12/16/2021 HISTORY: Chest pain TECHNIQUE: FINDINGS: Heart is normal. Lungs are clear. Diaphragm is normal. Bony thorax appears normal. There ar e chest leads. IMPRESSION: Normal chest. No change.
[2022-05-27 17:28] LABS: Amphetamine Screen,Urine Not Detected (NotDetected); Barbiturate Screen,Urine Not Detected (NotDetected); Benzodiazepines Screen,Urine Not Detected (NotDetected); Cocaine Screen,Urine Not Detected (NotDetected); Methadone Screen, Urine Not Detected (NotDetected); Opiate Screen,Urine Not Detected (NotDetected); Oxycodone Screen, Urine Not Detected (NotDetected); Phencyclidine Screen,Urine Not Detected (NotDetected); Tricyclic Antidepressant,Urine Not Detected (NotDetected); Urn Cannabinoid Scrn Not Detected (NotDetected)
[2022-05-27] MEDS ORDERED: HEPARIN SOD,PORK IN 0.45% NACL 25,000 UNIT in 0.45% NACL 1 250ML.BAG IV SCH (18:00)
--- NOTE | 2022-05-27 18:32 | P.HPIM ---
History of Present Illness H&P Date: 05/27/22 Patient is a 52-year-old male with PMH of atrial fibrillation that presents to the ED for shortness of breath and palpitations. Patient reports sudden onset of palpitations and shortness of breath that started today. He reports a recent viral illness (never tested for COVID 19) 3 weeks ago which he is recovering from. He was recently admitted in November 2021 for atrial fibrillation with RVR and discharged on metoprolol. He reports that his symptoms have been relatively under control since starting metoprolol but he does tend to miss his AM dose. He reports drinking 20 ounces of coffee daily. Patient denies any headache, lower extremity edema, nausea vomiting, fever chills, cough, chest pain, changes in urination or bowel habits. No changes in appetite or weight. He denies any dizziness, numbness/weakness/tingling of extremities. In the ED, is noted to have a heart rate in the 200s. Vital signs were otherwise stable. CBC showed hemoglobin of 17.7. Coagulation panel was negative. CMP showed chloride 111, glucose of 124, ALT of 79. Magnesium was 2.2. Troponin was 0.019. UDS was negative. Initial EKG showed SVT. He received 6 mg IV adenosine. Subsequent EKG showed atrial fibrillation with RVR. He was started on diltiazem and heparin drip and admitted for further workup a nd management of symptoms. General: non toxic, no distress, appears at stated age Derm: warm, dry Head: atraumatic, normocephalic, symmetric Eyes: EOMI, no lid lag, anicteric sclera Mouth: no lip lesion, mucus membranes moist Cardiovascular: Irregularly irregular, no murmur, positive DP pulse bilateral, Lungs: CTA bilateral, no rhonchi, no rales , no accessory muscle use Abdominal: soft, nontender to palpation, no guarding, no appreciable organomegaly Ext: no gross muscle atrophy, no edema, no contractures Neuro: no focal neuro deficits Psych: Alert, oriented, appropriate affect #Atrial fibrillation with RVR #Atrial flutter versus SVT #Transaminitis #Hyperglycemia #Obesity Patient presents with a rate in the 200s. Initially read as SVT, converted with adenosine 6 mg IV to atrial fibrillation with RVR. He is currently on a Cardizem drip. Heparin drip has been started by ED physician. His CHADVASC is 0. His heart rate is currently in the 100s. Maintain K > 4 and Mg > 2. Telemet ry monitoring. Echocardiogram done in November 2021 shows EF 55-60% with normal LV thickness, trace mitral and tricuspid regurgitation. TSH in November 2021 within normal limits. Cardiology has been consulted for futher management of this patient. Transaminitis is of unknown etiology. He will require workup in the outpatient setting. Obtain lipid panel. Obtain hemoglobin A1c. Patient will benefit from structured weight loss program. DVT prophylaxis: Heparin drip Discussed with: Patient, ED physician Anticipated discharge: 2-[address]: Home A total of 30 minutes was spent on the care of this complex patient more than 50% of the time was spent in counseling and care coordination. Patient names his decision maker if he cant make decisions for himself. Patient would like to be FULL CODE. Past Medical History Past Medical History: Atrial Fibrillation History of Any Multi-Drug Resistant Organisms: None Reported Past Surgical History: No Surgical Hx Reported Past Psychological History: No Psychological Hx Reported Smoking Status: Never smoker Past Alcohol Use History: Occasional Past Drug Use History: None Reported Medications and Allergies Home Medications Medication Instructions Recorded Confirmed Type Metoprolol Succinate (ER) [Toprol 50 mg PO DAILY #30 tab 12/17/21 05/27/22 Rx XL] Allergies Allergy/AdvReac Type Severity Reaction Status Date / Time No Known Allergies Allergy Verified 05/27/22 17:02 Physical Exam Vitals: Vital Signs Temp Pulse Resp BP Pulse Ox 05/27/22 18:02 113 H 20 114/90 97 05/27/22 16:33 133 H 20 96/70 97 05/27/22 16:23 152 H 22 104/66 96 05/27/22 15:59 97.8 F 222 H 18 125/94 97 Intake and Output 05/27/22 05/27/22 05/27/22 06:59 14:59 22:59 Other: Weight 108.862 kg Results CBC & Chem 7: 05/27/22 16:21 05/27/22 16:21 Labs: Abnormal Lab Results - Last 24 Hours (Table) 05/27/22 05/27/22 Range/Units 16:21 16:21 Hgb 17.7 H (13.0-17.5) gm/dL Chloride 111 H (98-107) mmol/L Glucose 124 H (74-99) mg/dL ALT 79 H (4-49) U/L
[2022-05-27] MEDS ORDERED: NITROGLYCERIN SL TABS 0.4 MG TAB SUBLINGUAL PRN (18:57)
[2022-05-27] MEDS ORDERED: MELATONIN 5 MG TABLET PO PRN (22:26)
[2022-05-28] MEDS ORDERED: ASPIRIN 325 MG TAB PO SCH (09:00)
[2022-05-28] MEDS ORDERED: AMIODARONE 200 MG TAB PO SCH (10:45)
[2022-05-28] MEDS ORDERED: METOPROLOL SUCCINATE (ER) 25 MG TAB.ER.24H PO SCH (10:45)
[2022-05-28 11:32] LABS: Chol/HDL Ratio 4.56 Ratio; LDL Cholesterol,Calculated 102.2 mg/dL (0.0-131.0)
--- NOTE | 2022-05-28 12:00 | P.PN ---
Subjective Progress Note Date: 05/28/22 Patient is a 52-year-old male with PMH of atrial fibrillation that presents to the ED for shortness of breath and palpitations. Patient reports sudden onset of palpitations and shortness of breath that started today. He reports a recent viral illness (never tested for COVID 19) 3 weeks ago which he is recovering from. He was recently admitted in November 2021 for atrial fibrillation with RVR and discharged on metoprolol. He reports that his symptoms have been relatively under control since starting metoprolol but he does tend to miss his AM dose. He reports drinking 20 ounces of coffee daily. In the ED, is noted to have a heart rate in the 200s. Vital signs were otherwise stable. CBC showed hemoglo bin of 17.7. Coagulation panel was negative. CMP showed chloride 111, glucose of 124, ALT of 79. Magnesium was 2.2. Troponin was 0.019. UDS was negative. Initial EKG showed SVT. He received 6 mg IV adenosine. Subsequent EKG showed atrial fibrillation with RVR. He was started on diltiazem and heparin drip and admitted for further workup and management of symptoms. Patient was seen and examined. No acute events overnight. HR currently in the 70s. He denies any chest pain, shortness of breath or palpitations. General: non toxic, no distress, appears at stated age Derm: warm, dry Head: atraumatic, normocephalic, symmetric Eyes: EOMI, no lid lag, anicteric sclera Mouth: no lip lesion, mucus membranes moist Cardiovascular: Irregularly irregular, no murmur Lungs: CTA bilateral, no rhonchi, no rales , no accessory muscle use Ext: no gross muscle atrophy, no edema, no contractures Neuro: no focal neuro deficits Psych: Alert, oriented, appropriate affect #Atrial fibrillation with RVR #Atrial flutter versus SVT #Troponin elevation #Transaminitis #Hyperglycemia #Obesity Patient presents with a rate in the 200s. Initially read as SVT, converted with adenosine 6 mg IV to atrial fibrillation with RVR. Cardizem drip discontinued and patient started Amiodarone and Metoprolol. Heparin drip discontinued. His CHADVASC is 0. His heart rate is currently in the 70s. Maintain K > 4 and Mg > 2. Telemetry monitoring. Echocardiogram done in November 2021 shows EF 55-60% with normal LV thickness, trace mitral and tricuspid regurgitation. Repeat Echocardiogram ordered. TSH in November 2021 within normal limits. Cardiology has been consulted for further management of this patient. Troponin elevation likely demand ischemia from AFib with RVR. Patient with no chest pain. Cardiology on board. Transaminitis is of unknown etiology. He will require workup in the outpatient setting. Lipid panel within normal limits. A1c within normal limits. Patient will benefit from structured weight loss program. Objective - Vital Signs Vital signs: Vital Signs Temp 97.3 F L 05/28/22 08:00 Pulse 83 05/28/22 08:00 Resp 17 05/28/22 08:00 BP 123/85 05/28/22 08:00 Pulse Ox 96 05/28/22 08:00 FiO2 Intake & Output 05/27/22 05/28/22 05/28/22 18:59 06:59 18:59 Intake Total 604.026 118.324 Balance 604.026 118.324 Weight 108.862 kg 108.862 kg Intake: Intake, IV Titration 64.026 118.324 Amount Heparin Sod,Pork in 0.45% 64.026 118.324 NaCl 25,000 unit In 0.45 % NaCl 1 250ml.bag @ 9.19 UNITS/KG/HR 10.004 mls/ hr IV .Q24H IRMA Rx#: [id number] Oral 540 Other: Voiding Method Toilet # Voids 2 - Labs CBC & Chem 7: 05/27/22 16:21 05/27/22 16:21 Labs: Abnormal Lab Results - Last 24 Hours (Table) 05/27/22 05/27/22 05/27/22 Range/Units 16:21 16:21 19:17 Hgb 17.7 H (13.0-17.5) gm/dL APTT (22.0-30.0) sec Chloride 111 H (98-107) mmol/L Glucose 124 H (74-99) mg/dL ALT 79 H (4-49) U/L Troponin I 0.092 H* (0.000-0.034) ng/mL HDL Cholesterol (40.00-60.00) mg/dL 05/27/22 05/28/22 05/28/22 Range/Units 23:39 00:14 07:36 Hgb (13.0-17.5) gm/dL APTT 31.4 H (22.0-30.0) sec Chloride (98-107) mmol/L Glucose (74-99) mg/dL ALT (4-49) U/L Troponin I 0.133 H* (0.000-0.034) ng/mL HDL Cholesterol 36.40 L (40.00-60.00) mg/dL 05/28/22 Range/Units 07:36 Hgb (13.0-17.5) gm/dL APTT 31.0 H (22.0-30.0) sec Chloride (98-107) mmol/L Glucose (74-99) mg/dL ALT (4-49) U/L Troponin I (0.000-0.034) ng/mL HDL Cholesterol (40.00-60.00) mg/dL
--- NOTE | 2022-05-28 12:18 | P.CRDCN ---
History of Present Illness History of present illness: This is a pleasant 51-year-old male past medical history significant for SVT and paroxysmal atrial fibrillation. He followed in the office with Dr. Coffman. We have been asked to see in consultation for atrial fibrillation with RVR and SVT. Patient presents to the emergency department with complaints of shortness of breath and palpitations. He states yesterday around 2 PM he had symptoms of palpitations. He went home and took his metoprolol dose and his palpitations are not improving. He had associated shortness of breath. Present to the emergency department for further evaluation. He states his symptoms are exactly the same when he's gone into A. fib with RVR or SVT in the past. In the emergency department patient was found to be in SVT with heart rates in the 220s, given 6 mg of IV adenosine, patient converted into atrial fibrillation. He states he was recently recovering from a viral illness 3 weeks ago. He states this is his 3rd time this has occurred. In Winter 2021 he was working in [employer] , he had palpitations, went to the ER and was diagnosed with SVT, was given adenosine and converted. He was also in the hospital in 11/2021 as well with A fib with RVR, he followed up with Dr. Coffman and reluctant to do an ablation at that time. Now patient is more amendable to an ablation. He works with the [employer] and has a difficult schedule. He denies any syncope or loss of consciousness. He denies history of CAD, hypertension, OH, Stroke, Diabetes, dyslipidemia. His family history includes father has history of CHF. Patient seen at bedside, he denies any chest pain, shortness of breath, weakness, dizziness, palpitations. He states he cannot feel when he is in A fib. DIAGNOSTICS EKG reveals SVT HR 220, repeat EKGs reveal atrial fibrillation Telemetry tracings indicate atrial fibrillation with controlled ventricular rates Chest xray no acute cardiopulmonary process Laboratory reviewed, initial troponin negative, repeat 0.92, 0.133, sodium 144, potassium 4.2, BUN 20, serum creatinine 2.9, magnesium 2.2, hemoglobin 17.7 Echocardiogram 11/2021 revealed EF 5560 percent, trace mitral regurgitation, trace tricuspid regurgitation Current home cardiac medications include metoprolol succinate 50mg daily. REVIEW OF SYSTEMS At the time of my exam: CONSTITUTIONAL: Denies fever or chills. CARDIOVASCULAR: Denies chest pain, shortness of breath, orthopnea, PND Reports palpitations, now resolved RESPIRATORY: Denies cough. GASTROINTESTINAL: Denies abdominal pain, diarrhea, constipation, nausea or vomiting. MUSCULOSKELETAL: Denies myalgias. NEUROLOGIC: Denies numbness, tingling, headacbe or weakness. ENDOCRINE: Denies fatigue, weight change, polydipsia or polyurina. GENITOURINARY: Denies burning, hematuria or urgency with micturation. HEMATOLOGIC: Denies history of anemia or bleeding. PHYSICAL EXAMINATION Blood pressure 126/96 HR 73 afebrile 98% on room air CONSTITUTIONAL: No apparent distress. HEENT: Head is normocephalic. Pupils are equal, round. Sclerae anicteric. Mucous membranes of the mouth are moist. No JVD. No carotid bruit. CHEST EXAMINATION: Lungs are clear to auscultation. No chest wall tenderness is noted on palpation or with deep breathing. HEART EXAMINATION: Irregular rate and rhythm. S1, S2 heard. No murmurs, gallops or rub. ABDOMEN: Soft, nontender. Positive bowel sounds. EXTREMITIES: 2+ peripheral pulses, no lower extremity edema and no calf tenderness. NEUROLOGIC EXAMINATION: Patient is awake, alert and oriented x3. ASSESSMENT Supraventricular tachycardia s/p adenosine Paroxysmal atrial fibrillation, -[id number] score 0 History of SVT PLAN Echocardiogram reviewed at bedside by Dr. De Jesus with normal LV systolic function. Recommend amiodarone 200mg BID and decrease metoprolol succinate 25mg daily Patient used to see Dr. Coffman, Recommend follow up with Dr. Cote for further evaluation of SVT and A fib with possible ablation as an outpatient. Patient is stable for discharge today. Office notified of the patient and will call patient with an appointment. Nurse practitioner note has been reviewed by physician. Signing provider agrees with the documented findings, assessment, and plan of care. Past Medical History Past Medical History: Atrial Fibrillation History of Any Multi-Drug Resistant Organisms: None Reported Past Surgical History: Orthopedic Surgery Past Anesthesia/Blood Transfusion Reactions: No Reported Reaction Past Psychological History: No Psychological Hx Reported Smoking Status: Never smoker Past Alcohol Use History: Occasional Past Drug Use History: None Reported - Past Family History Father Family Medical History: Congestive Heart Failure (CHF), Renal Disease Mother Family Medical History: Dementia Medications and Allergies Home Medications Medication Instructions Recorded Confirmed Type Amiodarone [Cordarone] 200 mg PO BID #120 tab 05/28/22 Rx Metoprolol Succinate (ER) [Toprol 25 mg PO DAILY #90 tab 05/28/22 Rx XL] Allergies Allergy/AdvReac Type Severity Reaction Status Date / Time No Known Allergies Allergy Verified 05/27/22 17:02 Physical Exam Vitals: Vital Signs Temp Pulse Pulse Resp BP BP Pulse Ox 05/28/22 03:31 97.9 F 81 16 105/66 95 05/27/22 23:16 98 F 84 16 107/77 96 05/27/22 21:20 97.7 F 96 18 122/89 98 05/27/22 19:47 88 16 121/97 98 05/27/22 18:02 113 H 20 114/90 97 05/27/22 16:33 133 H 20 96/70 97 05/27/22 16:23 152 H 22 104/66 96 05/27/22 15:59 97.8 F 222 H 18 125/94 97 Intake and Output 05/27/22 05/28/22 05/28/22 22:59 06:59 14:59 Intake Total 540 64.026 Balance 540 64.026 Intake: Intake, IV Titration 64.026 Amount Heparin Sod,Pork in 0.45% 64.026 NaCl 25,000 unit In 0.45 % NaCl 1 250ml.bag @ 9.19 UNITS/KG/HR 10.004 mls/ hr IV .Q24H [facility] Rx#: [id number] Oral 540 Other: Voiding Method Toilet Toilet # Voids 1 2 Weight 108.862 kg Results 05/27/22 16:21 05/27/22 16:21 Cardiac Enzymes 05/27/22 05/27/22 05/27/22 Range/Units 16:21 16:21 19:17 AST 48 (17-59) U/L Troponin I 0.019 0.092 H* (0.000-0.034) ng/mL 05/27/22 Range/Units 23:39 AST (17-59) U/L Troponin I 0.133 H* (0.000-0.034) ng/mL Coagulation 05/27/22 05/28/22 Range/Units 16:21 00:14 PT 10.8 (9.0-12.0) sec APTT 24.5 31.4 H (22.0-30.0) sec CBC 05/27/22 Range/Units 16:21 WBC 7.8 (3.8-10.6) k/uL RBC 5.86 (4.30-5.90) m/uL Hgb 17.7 H (13.0-17.5) gm/dL Hct 50.3 (39.0-53.0) % Plt Count 178 (150-450) k/uL Comprehensive Metabolic Panel 05/27/22 Range/Units 16:21 Sodium 144 (137-145) mmol/L Potassium 4.2 (3.5-5.1) mmol/L Chloride 111 H (98-107) mmol/L Carbon Dioxide 23 (22-30) mmol/L BUN 20 (9-20) mg/dL Creatinine 0.95 (0.66-1.25) mg/dL Glucose 124 H (74-99) mg/dL Calcium 9.3 (8.4-10.2) mg/dL AST 48 (17-59) U/L ALT 79 H (4-49) U/L Alkaline Phosphatase 87 (38-126) U/L Total Protein 7.3 (6.3-8.2) g/dL Albumin 4.7 (3.5-5.0) g/dL Current Medications Generic Name Dose Route Start Last Admin Trade Name Freq PRN Reason Stop Dose Admin Aspirin 325 mg 05/28/22 09:00 Aspirin 325 Mg Tab PO DAILY IRMA Diltiazem HCl 125 mg/ Sodium 125 mls @ 5 mls/hr 05/27/22 16:45 05/27/22 16:43 Chloride IV 5 mg/hr .Q24H IRMA 5 mls/hr Administration 5 MG/HR Heparin Sodium/Sodium Chloride 250 mls @ 10.004 mls/hr 05/27/22 18:00 05/28/22 00:47 25,000 unit/ Sodium Chloride IV 12.19 units/kg/hr .Q24H IRMA 13.27 mls/hr Titration Protocol 9.19 UNITS/KG/HR Melatonin 5 mg 05/27/22 22:26 05/27/22 22:42 Melatonin 5 Mg Tablet PO 5 mg HS PRN Administration Insomnia Nitroglycerin 0.4 mg 05/27/22 18:57 Nitroglycerin Sl Tabs 0.4 Mg Tab SUBLINGUAL Q5M PRN Chest Pain Intake and Output 05/27/22 05/28/22 05/28/22 22:59 06:59 14:59 Intake Total 540 64.026 Balance 540 64.026 Intake: Intake, IV Titration 64.026 Amount Heparin Sod,Pork in 0.45% 64.026 NaCl 25,000 unit In 0.45 % NaCl 1 250ml.bag @ 9.19 UNITS/KG/HR 10.004 mls/ hr IV .Q24H [facility] Rx#: [id number] Oral 540 Other: Voiding Method Toilet Toilet # Voids 1 2 Weight 108.862 kg 05/27/22 16:21 05/27/22 16:21
--- NOTE | 2022-05-28 13:03 | CA ---
Transthoracic Echo Report Name: Lv Cruz Age: 52 Gender: M : 1970 Exam Date: 05/28/2022 10:59 Exam Location: [facility] Ht (in): 72 Wt (lb): 240 Ordering Physician: Dena Cooney Attending/Referring Phys: Addiction Nurse Zulma Pineda RDCS Procedure CPT: Indications: A fib/SVT, elevated troponin Cardiac Hx: Technical Quality: Fair Contrast 1: Total Dose (mL): Contrast 2: Total Dose (mL): MEASUREMENTS (Male / Female) Normal Values 2D ECHO LV Diastolic Diameter PLAX 4.2 cm 4.2 - 5.9 / 3.9 - 5.3 cm LV Systolic Diameter PLAX 2.2 cm IVS Diastolic Thickness 1.1 cm 0.6 - 1.0 / 0.6 - 0.9 cm LVPW Diastolic Thickness 1.1 cm 0.6 - 1.0 / 0.6 - 0.9 cm LV Relative Wall Thickness 0.5 RV Internal Dim ED PLAX 3.2 cm LA Volume 71.7 cm??? 18 - 58 / 22 - 52 cm??? M-MODE Aortic Root Diameter MM 3.6 cm LA Systolic Diameter MM 3.1 cm LA Ao Ratio MM 0.8 AV Cusp Separation MM 2.5 cm DOPPLER AV Peak Velocity 88.7 cm/s AV Peak Gradient 3.1 mmHg AV Mean Velocity 70.1 cm/s AV Mean Gradient 2.1 mmHg AV Velocity Time Integral 19.7 cm LVOT Peak Velocity 67.3 cm/s LVOT Peak Gradient 1.8 mmHg LVOT Velocity Time Integral 16.2 cm MV Area PHT 3.9 cm??? Mitral E Point Velocity 72.8 cm/s Mitral A Point Velocity 64.7 cm/s Mitral E to A Ratio 1.1 MV Deceleration Time 196.7 ms MV E' Velocity 7.3 cm/s Mitral E to MV E' Ratio 10.0 TR Peak Velocity 215.5 cm/s TR Peak Gradient 18.6 mmHg Right Ventricular Systolic Press 23.6 mmHg FINDINGS Left Ventricle Mildly increased left ventricular wall thickness. Normal left ventricular systolic function with no obvious regional wall motion abnormalities. Left ventricular ejection fraction is estimated at 55-60 %. Right Ventricle Normal right ventricular size and function. Right ventricular systolic pressure within normal limits. Right Atrium Normal right atrial size. Left Atrium Mild left atrial dilatation. Mitral Valve Structurally normal mitral valve. No mitral stenosis, regurgitation or prolapse. Aortic Valve No aortic valve stenosis or regurgitation. Tricuspid Valve Structurally normal tricuspid valve. Mild tricuspid regurgitation. Pulmonic Valve Trace pulmonic regurgitation. Pericardium No pericardial effusion. Aorta Normal size aortic root and proximal ascending aorta. CONCLUSIONS Normal left ventricular dimension and systolic function Normal right ventricular dimension and systolic function Normal intracardiac valves Previewed by: Dr. Armando Beebe MD (Electronically Signed) Final Date: 28 May 2022 13:02
--- NOTE | 2022-05-28 13:21 | P.DS ---
Providers Date of admission: 05/27/22 18:57 Expected date of discharge: 05/28/22 Attending physician: Toy Loja MD Consults: 05/27/22 18:57 Consult Physician Urgent Consulting Provider: [facility] Consult Reason/Comments: SVT, A. fib with rapid ventricular response Do you want consulting provider notified?: Yes Primary care physician: Stated None Hospital Course: Patient is a 52-year-old male with PMH of atrial fibrillation that presents to the ED for shortness of breath and palpitations. Patient reports sudden onset of palpitations and shortness of breath that started today. He reports a recent viral illness (never tested for COVID 19) 3 weeks ago which he is recovering from. He was recently admitted in November 2021 for atrial fibrillation with RVR and discharged on metoprolol. He reports that his symptoms have been relatively under control since starting metoprolol but he does tend to miss his AM dose. He reports drinking 20 ounces of coffee daily. In the ED, is noted to have a heart rate in the 200s. Vital signs were otherwise stable. CBC showed hemoglobin of 17.7. Coagulation panel was negative. CMP showed chloride 111, glucose of 124, ALT of 79. Magnesium was 2.2. Troponin was 0.019. UDS was negative. Initial EKG showed SVT. He received 6 mg IV adenosine. Subsequent EKG showed atrial fibrillation with RVR. He was started on diltiazem and heparin drip and admitted for further workup and management of symptoms. Cardizem drip was discontinued and patient was started Amiodarone and Metoprolol. Heparin drip was discontinued. His CHADVASC was 0. Lipid panel and A1c was within normal limits. Repeat Echocardiogram showed normal EF. Troponin elevation was likely related to demand ischemia from AFib with RVR. Cardiology cleared the patient for discharge to follow up with Dr. oCte for possible albation. Pertinent studies include chest x-ray, echocardiogram. General: non toxic, no distress, appears at stated age Derm: warm, dry Head: atraumatic, normocephalic, symmetric Eyes: EOMI, no lid lag, anicteric sclera Mouth: no lip lesion, mucus membranes moist Cardiovascular: Irregularly irregular, no murmur Lungs: CTA bilateral, no rhonchi, no rales , no accessory muscle use Ext: no gross muscle atrophy, no edema, no contractures Neuro: no focal neuro deficits Psych: Alert, oriented, appropriate affect Discharge Diagnosis: #Atrial fibrillation with RVR #Atrial flutter versus SVT #Troponin elevation #Transaminitis #Hyperglycemia #Obesity This complex discharge took about 35 minutes to complete. Patient Condition at Discharge: Stable Plan - Discharge Summary Discharge Rx Participant: No New Discharge Prescriptions: New Amiodarone [Cordarone] 200 mg PO BID #120 tab Metoprolol Succinate (ER) [Toprol XL] 25 mg PO DAILY #90 tab Discontinued Metoprolol Succinate (ER) [Toprol XL] 50 mg PO DAILY #30 tab Discharge Medication List Amiodarone [Cordarone] 200 mg PO BID #120 tab 05/28/22 [Rx] Metoprolol Succinate (ER) [Toprol XL] 25 mg PO DAILY #90 tab 05/28/22 [Rx] Follow up Appointment(s)/Referral(s): Dario Cote MD [STAFF PHYSICIAN] - 2 Weeks (if you do not hear from office within 2 days post discharge call office to follow up. ) None,Stated [Primary Care Provider] - 1-2 days Patient Instructions/Handouts: Amiodarone (By mouth), A-fib (Atrial Fibrillation) (GEN), Supraventricular Tachycardia (GEN) Activity/Diet/Wound Care/Special Instructions: [facility] will call you with an appointment to see Dr. Cote in the office Discharge Disposition: HOME SELF-CARE
[2022-05-28 13:32] VITALS: BP 121/84; PULSE 86; RESP 16; TEMP 97.6
--- NOTE | 2022-05-28 14:02 | CDI ---
Documentation Clarification Form Date: 05/28/2022 01:52:32 PM From: Lucila Gomez CCS, CCDS Admit Date: 05/27/2022 06:57:00 PM Patient Name: Lv Cruz Visit Number: [id number] Discharge Date: ATTENTION: The Clinical Documentation Specialists (CDI) and [facility] Coding Staff appreciate your assistance in clarifying documentation. Please respond to the clarification below the line at the bottom and electronically sign. The CDI & [facility] Coding staff will review the response and follow-up if needed. Please note: Queries are made part of the Legal Health Record. If you have any questions, please contact the author of this message via ITS. Dr. Toy Loja: The following is documented in the 05/28 Attending Physician Progress Note: Troponin elevation likely demand ischemia from Atrial Fibrillation w/RVR. Additional clarification regarding the etiology of the patient's elevated Troponins, not documented by Cardiology. Patient History/Risk Factors per the 05/27 H/P: SVT and Paroxysmal Atrial Fibrillation, Obesity (BMI 32.5). Previously admitted with Atrial Fibrillation, discharged on Metoprolol November 2021. Clinical Indicators: Presented to the ED on 05/27 with Chest Pain & SOB, some chest pressure. Admit with SVT, Atrial Fibrillation with RVR. Troponin 05/27: 0.092, 0.133 EKG Results: R 69 Atrial fibrillation, Abnormal rhythm ECG. Treatment 05/27: Telemetry, O2 2Lnc, IV Adenosine 6 mg x1, IV Cardizem Drip bolus 5 mg x1, IV Cardizem 125 mls @ 5 mls/hr q24H, IV heparin 250 mls @ 10.004 mls/hr q24H, Nitro sl q5M/prn. Please further clarify the etiology of the patient's elevated Troponins, if known: [ ] Type 2 AZ due to Arrhythmia described as, please specify: [ ] Type 2 AZ due to other, please specify: ) [ ] Unable to determine [ ] Other Condition, please specify (Template Last Revised: September 2020) Type 2 AZ due to Arrhythmia MTDD
--- NOTE | 2022-05-28 14:06 | CDI ---
Documentation Clarification Form Date: 05/28/2022 02:02:00 PM From: Lucila Gomez CCS, CCDS Admit Date: 05/27/2022 06:57:00 PM Patient Name: Lv Cruz Visit Number: [id number] Discharge Date: 05/28/2022 01:56:00 PM ATTENTION: The Clinical Documentation Specialists (CDI) and [facility] Coding Staff appreciate your assistance in clarifying documentation. Please respond to the clarification below the line at the bottom and electronically sign. The CDI & [facility] Coding staff will review the response and follow-up if needed. Please note: Queries are made part of the Legal Health Record. If you have any questions, please contact the author of this message via ITS. Dr. Toy Ljoa: Atrial Flutter versus SVT is documented in the 05/28 Discharge Summary. Additional clarification regarding the type of Atrial Flutter or if ruled out is requested. Patient History/Risk Factors per the 05/27 H/P: SVT and Paroxysmal Atrial Fibrillation, Obesity (BMI 32.5). Previously admitted with Atrial Fibrillation, discharged on Metoprolol November 2021. Clinical Indicators: Presented to the ED on 05/27 with Chest Pain & SOB, some chest pressure. Admit with SVT, Atrial Fibrillation with RVR. Troponin 05/27: 0.092, 0.133 EKG Results: R 69 Atrial fibrillation, Abnormal rhythm ECG. Treatment 05/27: Telemetry, O2 2Lnc, IV Adenosine 6 mg x1, IV Cardizem Drip bolus 5 mg x1, IV Cardizem 125 mls @ 5 mls/hr q24H, IV heparin 250 mls @ 10.004 mls/hr q24H, Nitro sl q5M/prn. Please clarify the type of Atrial Flutter, if known: [ ] Typical/Type I [ ] Atypical/Type II [ ] Atrial Flutter is ruled out [ ] Other, please specify: [ ] Unable to determine (Template Last Revised: September 2020) Atrial fibrillation, not flutter MTDD
== END 2022-05-28 13:56 | disposition home or self-care (01) | DRG 282 ==
LOC: EC 15:40 → 3SCARD 18:57
PROVIDERS: ADMIT Family Medicine; ATTEND Family Medicine
DX: I48.0 Paroxysmal atrial fibrillation (principal); I21.A1 Myocardial infarction type 2; R74.01 Elevation of levels of liver transaminase levels; R73.9 Hyperglycemia, unspecified; I08.1 Rheumatic disorders of both mitral and tricuspid valves; I47.1 Supraventricular tachycardia; I48.92 Unspecified atrial flutter; Z68.32 Body mass index [BMI] 32.0-32.9, adult; E66.9 Obesity, unspecified; Z79.899 Other long term (current) drug therapy; Z82.49 Family history of ischemic heart disease and other diseases of the circulatory system
CPT/HCPCS: 36415; 71046; 80053; 80061; 80306; 83036; 83735; 84484; 85025; 85610; 85730; 93005; 93306; 94760; 96365; 96366; 96375; 99291

== ENCOUNTER → 2022-07-11 | Outpatient (CLI) | payer BC | END | disposition home or self-care (01) | LOC: LABWHC1 15:06 | PROVIDERS: ATTEND Internal Medicine | DX: Z79.899 Other long term (current) drug therapy (principal) | CPT/HCPCS: 36415; 84443; 84450; 84460 ==

== ENCOUNTER 2022-10-29 14:39 | Emergency (ER) | payer BC ==
[2022-10-29 14:58] VITALS: TEMP 97.7
--- NOTE | 2022-10-29 15:52 | XR ---
EXAMINATION TYPE: XR chest 2V DATE OF EXAM: 10/29/2022 3:47 PM COMPARISON: Chest radiographs from 05/27/2022 TECHNIQUE: XR chest 2V Frontal and lateral views of the chest. CLINICAL INDICATION:Male, 52 years old with history of dysrhythmia; FINDINGS: Lungs/Pleura: There is no evidence of pleural effusion, focal consolidation, or pneumothorax. Pulmonary vascularity: Unremarkable. Heart/mediastinum: Cardiomediastinal silhouette is unremarkable. Musculoskeletal: No acute osseous pathology. IMPRESSION: No acute cardiopulmonary disease/process.
[2022-10-29 15:55] LABS: Basophils # (A) 0.1 k/uL (0-0.2); Basophils % (A) 1 %; Eosinophils # (A) 0.1 k/uL (0-0.7); Eosinophils % (A) 2 %; HCT 48.4 % (39.0-53.0); HGB 16.8 gm/dL (13.0-17.5); Lymphocytes # (A) 2.2 k/uL (1.0-4.8); Lymphocytes % (A) 34 %; MCH 29.5 pg (25.0-35.0); MCHC 34.6 g/dL (31.0-37.0); MCV 85.2 fL (80.0-100.0); Mean Platelet Volume 8.3; Monocytes # (A) 0.5 k/uL (0-1.0); Monocytes % (A) 8 %; Neutrophils # (A) 3.5 k/uL (1.3-7.7); Neutrophils % (A) 54 %; Platelet Count 163 k/uL (150-450); RBC 5.68 m/uL (4.30-5.90); RDW 13.2 % (11.5-15.5); WBC 6.4 k/uL (3.8-10.6)
[2022-10-29 16:11] LABS: Albumin 4.2 g/dL (3.5-5.0); Calcium 9.1 mg/dL (8.4-10.2); Potassium 4.4 mmol/L (3.5-5.1); Total Bilirubin 0.4 mg/dL (0.2-1.3)
[2022-10-29 16:14] LABS: Partial Thromboplastin Time 25.5 sec (22.0-30.0); Prothrombin Time 10.9 sec (9.0-12.0)
[2022-10-29 17:15] VITALS: RESP 20
[2022-10-29] MEDS: MAG HYDROX/AL HYDROX/SIMETH 30 ML CUP PO PRN (17:23)
--- NOTE | 2022-10-29 18:07 | ED ---
General Adult HPI - General Chief complaint: Arrhythmia/Palpitations Stated complaint: sob Time Seen by Provider: 10/29/22 15:17 Source: patient, RN notes reviewed, old records reviewed Mode of arrival: ambulatory Limitations: no limitations - History of Present Illness Initial comments: This is a 52-year-old male who presents emergency Department with a recently diagnosis of A. fib. Patient states he has been having episodes where he gets up 230 beats a minute and becomes a little short of breath per patient states shortness of breath seems to be worsening. Patient denies any chest pain or fevers. Patient denies any cough. Patient denies any abdominal pain patient denies nausea vomiting. Patient states he normally only takes 50 mg metoprolol in the morning but he's been taking 15 morning and night and he continues to have episodes of rapid heart rate. Patient is not on any blood thinners this time. - Related Data Home Medications Medication Instructions Recorded Confirmed Digoxin 250 mcg PO DAILY 10/29/22 10/29/22 Metoprolol Succinate (ER) [Toprol 50 mg PO DAILY 10/29/22 10/29/22 Xl] Multivitamins, Thera [Multivitamin 1 tab PO DAILY 10/29/22 10/29/22 (formulary)] Allergies Allergy/AdvReac Type Severity Reaction Status Date / Time No Known Allergies Allergy Verified 10/29/22 16:26 Review of Systems ROS Statement: Those systems with pertinent positive or pertinent negative responses have been documented in the HPI. ROS Other: All systems not noted in ROS Statement are negative. Past Medical History Past Medical History: Atrial Fibrillation History of Any Multi-Drug Resistant Organisms: None Reported Past Surgical History: Orthopedic Surgery Past Anesthesia/Blood Transfusion Reactions: No Reported Reaction Past Psychological History: No Psychological Hx Reported Smoking Status: Never smoker Past Alcohol Use History: Occasional Past Drug Use History: None Reported - Past Family History Father Family Medical History: Congestive Heart Failure (CHF), Renal Disease Mother Family Medical History: Dementia General Exam - General Exam Comments Initial Comments: GENERAL: Patient is well-developed and well-nourished. Patient is nontoxic and well- hydrated and is in no acute distress. ENT: Neck is soft and supple. No significant lymphadenopathy is noted. Oropharynx is clear. Moist mucous membranes. Neck has full range of motion without eliciting any pain. EYES: The sclera were anicteric and conjunctiva were pink and moist. Extraocular movements were intact and pupils were equal round and reactive to light. Eyelids were unremarkable. PULMONARY: Unlabored respirations. Good breath sounds bilaterally. No audible rales rhonchi or wheezing was noted. CARDIOVASCULAR: A. fib at 105 beats a minute ABDOMEN: Soft and nontender with normal bowel sounds. SKIN: Skin is clear with no lesions or rashes and otherwise unremarkable. NEUROLOGIC: Patient is alert and oriented x3. Cranial nerves II through XII are grossly intact. Motor and sensory are also intact. Normal speech, volume and content. Symmetrical smile. MUSCULOSKELETAL: Normal extremities with adequate strength and full range of motion. LYMPHATICS: No significant lymphadenopathy is noted PSYCHIATRIC: Normal psychiatric evaluation. Limitations: no limitations Course Vital Signs 10/29/22 10/29/22 10/29/22 14:57 14:58 16:58 Temperature 97.7 F Pulse Rate 74 90 100 Respiratory 20 16 20 Rate Blood Pressure 125/89 130/80 135/89 O2 Sat by Pulse 98 98 98 Oximetry 10/29/22 17:00 Temperature Pulse Rate 110 H Respiratory 20 Rate Blood Pressure 135/87 O2 Sat by Pulse 98 Oximetry Medical Decision Making - Medical Decision Making EKG shows atrial fibrillation 91 bpm QRS is 90 QT interval 343 QTC is 392. Patient's EKG shows no ST segment patient or depression. Was pt. sent in by a medical professional or institution (TEERSA Barry, RESEARCH FELLOW, urgent care, hospital, or longterm...) When possible be specific @ -No Did you speak to anyone other than the patient for history (EMS, parent, family, police, friend...)? What history was obtained from this source @ -No Did you review nursing and triage notes (agree or disagree)? Why? @ -I reviewed and agree with nursing and triage notes Were old charts reviewed (outside hosp., previous admission, EMS record, old EKG, old radiological studies, urgent care reports/EKG's, longterm records)? Report findings @ -No old charts were reviewed Differential Diagnosis (chest pain, altered mental status, abdominal pain women, abdominal pain men, vaginal bleeding, weakness, fever, dyspnea, syncope, headache, dizziness, GI bleed, back pain, seizure, CVA, palpatations, mental health, musculoskeletal)? @ -Differential Palpitations Ventricular arrhythmias, atrial arrhythmias, myocardial infarction, anemia, thyrotoxicosis, electrolyte imbalance, hypokalemia, pulmonary embolism, pulmonary disease, drugs, alcohol, anxiety, stress.... This is not meant to be an all-inclusive list. EKG interpreted by me (3pts min.). @ -As above X-rays interpreted by me (1pt min.). @ -Chest x-ray was performed by myself in no acute abnormality. CT interpreted by me (1pt min.). @ -None done U/S interpreted by me (1pt. min.). @ -None done What testing was considered but not performed or refused? (CT, X-rays, U/S, labs)? Why? @ -None What meds were considered but not given or refused? Why? @ -None Did you discuss the management of the patient with other professionals (professionals i.e. , PA, RESEARCH FELLOW, lab, RT, psych nurse, mental health social worker, crate repairer, teacher, inshore undersea warfare officer, case picker)? Give summary @ -No Was smoking cessation discussed for >3mins.? @ -No Was critical care preformed (if so, how long)? @ -No Were there social determinants of health that impacted care today? How? (Homelessness, low income, unemployed, alcoholism, drug addiction, tr ansportation, low edu. Level, literacy, decrease access to med. care, fpc, rehab)? @ -No Was there de-escalation of care discussed even if they declined (Discuss DNR or withdrawal of care, Hospice)? DNR status @ -No What co-morbidities impacted this encounter? (DM, HTN, Smoking, COPD, CAD, Cancer, CVA, ARF, Chemo, Hep., AIDS, mental health diagnosis, sleep apnea, morbid obesity)? @ -None Was patient admitted / discharged? Hospital course, mention meds given and route, prescriptions, significant lab abnormalities, going to OR and other pertinent info. @ -Lab work came back within normal range d-dimer was normal did Mono was therapeutic. 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 Undiagnosed new problem with uncertain prognosis? @ -No Drug Therapy requiring intensive monitoring for toxicity (Heparin, Nitro, Insulin, Cardizem)? @ -No Were any procedures done? @ -No Diagnosis/symptom? @ -Atrial fibrillation Acute, or Chronic, or Acute on Chronic? @ -Acute on chronic Uncomplicated (without systemic symptoms) or Complicated (systemic symptoms)? @ -Complicated Side effects of treatment? @ -No Exacerbation, Progression, or Severe Exacerbation? @ -No Poses a threat to life or bodily function? How? (Chest pain, [place], [place], pneumonia, PE, COPD, DKA, ARF, appy, cholecystitis, CVA, Diverticulitis, Homicidal, Suicidal, threat to staff... and all critical care pts) @ -No - Lab Data Result diagrams: 10/29/22 15:30 10/29/22 15:33 Lab Results 10/29/22 10/29/22 10/29/22 Range/Units 15:30 15:30 15:30 WBC 6.4 (3.8-10.6) k/uL RBC 5.68 (4.30-5.90) m/uL Hgb 16.8 (13.0-17.5) gm/dL Hct 48.4 (39.0-53.0) % MCV 85.2 (80.0-100.0) fL MCH 29.5 (25.0-35.0) pg MCHC 34.6 (31.0-37.0) g/dL RDW 13.2 (11.5-15.5) % Plt Count 163 (150-450) k/uL MPV 8.3 Neutrophils % 54 % Lymphocytes % 34 % Monocytes % 8 % Eosinophils % 2 % Basophils % 1 % Neutrophils # 3.5 (1.3-7.7) k/uL Lymphocytes # 2.2 (1.0-4.8) k/uL Monocytes # 0.5 (0-1.0) k/uL Eosinophils # 0.1 (0-0.7) k/uL Basophils # 0.1 (0-0.2) k/uL PT 10.9 (9.0-12.0) sec INR 1.0 (<1.2) APTT 25.5 (22.0-30.0) sec D-Dimer (<0.60) mg/L FEU Sodium (137-145) mmol/L Potassium (3.5-5.1) mmol/L Chloride (98-107) mmol/L Carbon Dioxide (22-30) mmol/L Anion Gap mmol/L BUN (9-20) mg/dL Creatinine (0.66-1.25) mg/dL Est GFR (CKD-EPI)AfAm (>60 ml/min/1.73 sqM) Est GFR (CKD-EPI)NonAf (>60 ml/min/1.73 sqM) Glucose (74-99) mg/dL Calcium (8.4-10.2) mg/dL Magnesium (1.6-2.3) mg/dL Total Bilirubin (0.2-1.3) mg/dL AST (17-59) U/L ALT (4-49) U/L Alkaline Phosphatase (38-126) U/L Troponin I <0.012 (0.000-0.034) ng/mL Total Protein (6.3-8.2) g/dL Albumin (3.5-5.0) g/dL Digoxin ng/mL 10/29/22 10/29/22 Range/Units 15:33 17:15 WBC (3.8-10.6) k/uL RBC (4.30-5.90) m/uL Hgb (13.0-17.5) gm/dL Hct (39.0-53.0) % MCV (80.0-100.0) fL MCH (25.0-35.0) pg MCHC (31.0-37.0) g/dL RDW (11.5-15.5) % Plt Count (150-450) k/uL MPV Neutrophils % % Lymphocytes % % Monocytes % % Eosinophils % % Basophils % % Neutrophils # (1.3-7.7) k/uL Lymphocytes # (1.0-4.8) k/uL Monocytes # (0-1.0) k/uL Eosinophils # (0-0.7) k/uL Basophils # (0-0.2) k/uL PT (9.0-12.0) sec INR (<1.2) APTT (22.0-30.0) sec D-Dimer 0.36 (<0.60) mg/L FEU Sodium 140 (137-145) mmol/L Potassium 4.4 (3.5-5.1) mmol/L Chloride 107 (98-107) mmol/L Carbon Dioxide 27 (22-30) mmol/L Anion Gap 6 mmol/L BUN 20 (9-20) mg/dL Creatinine 1.09 (0.66-1.25) mg/dL Est GFR (CKD-EPI)AfAm 89 (>60 ml/min/1.73 sqM) Est GFR (CKD-EPI)NonAf 77 (>60 ml/min/1.73 sqM) Glucose 91 (74-99) mg/dL Calcium 9.1 (8.4-10.2) mg/dL Magnesium 2.0 (1.6-2.3) mg/dL Total Bilirubin 0.4 (0.2-1.3) mg/dL AST 38 (17-59) U/L ALT 70 H (4-49) U/L Alkaline Phosphatase 63 (38-126) U/L Troponin I (0.000-0.034) ng/mL Total Protein 7.0 (6.3-8.2) g/dL Albumin 4.2 (3.5-5.0) g/dL Digoxin 1.0 ng/mL Disposition Clinical Impression: Atrial fibrillation Disposition: HOME SELF-CARE Condition: Good Instructions (If sedation given, give patient instructions): A-fib (Atrial Fibrillation) (ED) Is patient prescribed a controlled substance at d/c from ED?: No Referrals: None,Stated [Primary Care Provider] - 1-2 days Dario Cote MD [STAFF PHYSICIAN] - 1-2 days Time of Disposition: 18:13
[2022-10-29 18:56] VITALS: BP 130/60; PULSE 86
== END 2022-10-29 18:55 | disposition home or self-care (01) ==
LOC: EC 14:39
DX: I48.91 Unspecified atrial fibrillation (principal)
CPT/HCPCS: 36415; 71046; 80053; 80162; 83735; 84484; 85025; 85379; 85610; 85730; 93005; 99285

== ENCOUNTER → 2022-11-20 | Outpatient (CLI) | payer BC ==
[2022-11-20 15:19] LABS: HCT 50.5 % (39.6-50.0); HGB 16.5 g/dL (13.0-17.0); MCHC 32.7 g/dL (32.0-37.0); MCV 85.6 fL (80.0-97.0); Mean Platelet Volume 10.4 fL (9.5-12.2); NRBC Per 100 WBC 0 /100 WBCS (0.0-0.0); Platelet Count 146 X 10*3/uL (140-440); WBC 5.82 X 10*3/uL (4.50-10.00)
[2022-11-20 15:56] LABS: African American GFR (CKD) 85.9 (60.0-200.0); Anion Gap 7.4 mmol/L (10.00-18.00); Blood Urea Nitrogen 19.5 mg/dL (9.0-27.0); Carbon Dioxide 27.4 mmol/L (20.0-27.5); Non-African American GFR(CKD) 74.1 (60.0-200.0); Potassium 4.9 mmol/L (3.5-5.5)
== END | disposition home or self-care (01) ==
LOC: LABPAT 09:17
PROVIDERS: ATTEND Internal Medicine Clinical Cardiac Electrophysiology
DX: Z01.812 Encounter for preprocedural laboratory examination (principal); I47.1 Supraventricular tachycardia; I48.0 Paroxysmal atrial fibrillation
CPT/HCPCS: 80051; 82565; 84520; 85027

== ENCOUNTER 2022-11-27 11:54 | Day surgery (SDC) | payer BC ==
[2022-11-26 11:28] VITALS: BMI 33.5
[~2022-11-27 11:54] MED LIST: LACTATED RINGERS 1,000 ML IV SCH
[2022-11-27] MEDS ORDERED: APIXABAN 5 MG TAB PO STA (12:19)
[2022-11-27] MEDS: SODIUM CHLORIDE 0.9% 1,000 ML IV SCH (12:33)
[2022-11-27] MEDS ORDERED: AMIODARONE 50 MG/ML 3 ML VIAL IV ONE (13:17)
[2022-11-27] MEDS ORDERED: fentaNYL (PF) 50 MCG/ML 2 ML AMP ONE (13:17)
[2022-11-27] MEDS ORDERED: ISOPROTERENOL 250 MCG/1.25 ML SYR IV ONE (13:17)
[2022-11-27] MEDS ORDERED: MIDAZOLAM 2 MG/2 ML VIAL ONE (13:17)
[2022-11-27] MEDS ORDERED: HEPARIN SODIUM,PORCINE 5,000 UNIT/ML 1 ML VIAL ONE (13:17)
[2022-11-27] MEDS ORDERED: PROPOFOL 10 MG/ML 20 ML VIAL IV ONE (13:17)
[2022-11-27] MEDS ORDERED: LIDOCAINE 1% INJ 10MG/ML (20 ML MDV) ONE (13:32)
[2022-11-27] MEDS ORDERED: LIDOCAINE 1% INJ 10MG/ML (20 ML MDV) SQ ONE (13:51)
[2022-11-27] MEDS ORDERED: HEPARIN SODIUM (1,000 UNIT/ML) 1,000 UNIT in SODIUM CHLORIDE 0.9% 1,000 ML IRRIGATION ONE (16:38)
[2022-11-27] MEDS ORDERED: SODIUM CHLORIDE 0.9% 1,000 ML IV ONE (16:39)
[2022-11-27] MEDS ORDERED: ACETAMINOPHEN TAB 325 MG TAB PO PRN (17:01)
--- NOTE | 2022-11-27 17:01 | P.HPCAR ---
History of Present Illness This is Dr. Cote dictating an H/P on this patient The patient was interviewed and examined IMPRESSION / ASSESSMENT: Recurrent palpitations with tachycardia greater than 220 beats a minute Initially treated with amiodarone Amiodarone was discontinued for the last 3 months Continues to have recurrent palpitations Normal TSH PLAN: Diagnostic EP study for evaluation and management of SVT Possible SVT ablation Possible PFO ablation HPI Patient was admitted to the hospital in July 2021 with coved. At that time he had recurrent episodes of palpitations and subsequently continued to have recurrent episodes palpitations Some of the episodes looked like SVT another's I PFO with RVR He was treated with oral amiodarone and beta blockers His TSH was normal Renal function and magnesium are normal Subsequently the 2-D echo and Doppler study was normal Amiodarone was held for the last 3 months. He was scheduled for a diagnostic EP study He is on ELIQUIS ROS: No fever chills or rigors, no cough, phlegm or expectoration, no nausea, vomiting or diarrhea, no hematuria, dysuria, no musculoskeletal complaints, no strokes or seizures, no skin lesions. EXAMINATION: On examination blood pressure 134/85 mmHg afebrile normal heart sounds, murmurs or gallops. Clear lungs to rhonchi no crackles Soft abdomen nontender No JVD No lower extremity edema REVIEW OF LABS, ECG & MEDICAL DATA Patient on ELIQUIS metoprolol multivitamin digoxin Physical Exam Vitals: Vital Signs Temp Pulse Resp BP Pulse Ox 11/27/22 12:32 98.3 F 78 18 134/85 98 Intake and Output 11/27/22 11/27/22 11/27/22 06:59 14:59 22:59 Intake Total 1000 380 Balance 1000 380 Intake: IV 1000 380 Past Medical History Past Medical History: Atrial Fibrillation History of Any Multi-Drug Resistant Organisms: None Reported Past Surgical History: Orthopedic Surgery Additional Past Surgical History / Comment(s): tendon and nerve repair left hand Past Anesthesia/Blood Transfusion Reactions: No Reported Reaction Additional Past Anesthesia/Blood Transfusion Reaction / Comment(s): no hx blood transfusion Smoking Status: Never smoker - Past Family History Father Family Medical History: Congestive Heart Failure (CHF), Renal Disease Mother Family Medical History: Dementia Physical Examination Vital Signs Temp Pulse Resp BP Pulse Ox 11/27/22 12:32 98.3 F 78 18 134/85 98 Intake and Output 11/27/22 11/27/22 11/27/22 06:59 14:59 22:59 Intake Total 1000 380 Balance 1000 380 Intake: IV 1000 380 Results Current Medications Generic Name Dose Route Start Last Admin Trade Name Chrisq PRN Reason Stop Dose Admin Sodium Chloride 1,000 mls @ 20 mls/hr 11/27/22 07:02 11/27/22 12:33 Saline 0.9% IV 12/27/22 07:03 1,000 mls .Q24H IRMA Administration Lactated Ringer's 1,000 mls @ 20 mls/hr 11/27/22 07:02 Lactated Ringers IV 12/27/22 07:03 .Q24H IRMA Intake and Output 11/27/22 11/27/22 11/27/22 06:59 14:59 22:59 Intake Total 1000 380 Balance 1000 380 Intake: IV 1000 380
--- NOTE | 2022-11-27 17:11 | P.PN ---
Progress Note - Text Patient: Lv Cruz 52-year-old male patient with recurrent symptomatic supraventricular tachycardia with RVR greater than 200 beats a minute. 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 fib ablation Hold flecainide and metoprolol for 2 days prior to the A. fib ablation procedure He should start ELIQUIS one month before the date of his A. fib ablation procedure ELIQUIS use must not be interrupted for that 1 month, prior to his A. fib ablation He must take ELIQUIS 5 mg in the morning of the procedure also Thereafter he should continue ELIQUIS for 3 months after the A. fib ablation Dose of ELIQUIS 5 milligrams twice daily Discussed with patient's
[2022-11-27] MEDS ORDERED: ACETAMINOPHEN IV (For NPO) 1,000 MG in EMPTY BAG 1 BAG IVPB ONE (17:15)
--- NOTE | 2022-11-27 17:33 | P.EPPROC ---
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 fib Future plan Stop digoxin Start flecainide 50 mg twice daily and metoprolol to continue A. fib ablation after 3 months Patient should start ELIQUIS one month prior to the procedure and take it on the day of the procedure also Hold flecainide and metoprolol 2 days prior to A. fib ablation procedure After pulmonary vein isolation of full diagnostic EP study to look for any residual SVT and atrial tachycardia Details Patient was brought to the EP lab in a fasting state. Written informed consent was obtained prior to procedure. Venous sheaths placed in the right and left femoral veins We of these, diagnostic catheters placed in the high right atrium, His bundle area, Riavs sinus and right ventricle Further diagnostic EP study is performed NM interval 174 ms, QRS 100 ms, QT 303 ms AH 73 and HV interval 52 ms Sinus recovery times at 600, 500 and, 400 ms were 1494, 1443 and 892 ms. AV node Wenckebach block 390 ms from the Rivas sinus VA Wenckebach block 410 ms AV node Wenckebach block. Atrial fibrillation milliseconds No evidence for delta waves Parahisian pacing performed lana response noted Isuprel started SVT induced on Isuprel spontaneously Short septal times with RVR him a spontaneous termination with block in the slow pathway antegradely Consistent with AV lana reentry This tachycardia was also induced with double access to lie from the high right atrium SVT would also initiate with induction of a long RP tachycardia that would induce AV lana reentry Ventricular pacing was performed during the tachycardia but it was difficult to entrain this tachycardia, resulting in termination However V pacing dissociated the tachycardia Atrial fibrillation was also spontaneously induced during washout of Isuprel Thereafter the A. fib became incessant IV amiodarone 150 mg bolus was given and electrical cardioversion performed However there was immediate recurrence of atrial fibrillation A second bolus of IV amiodarone of 150 mg was given We waited for another 20-30 minutes and then performed an electrical cardioversion This time the patient remained in sinus rhythm and allowed mapping of the slow pathway 3-D A driving mapping was performed. The His bundle area and the coronary sinus in the tricuspid annulus and tagged The slow pathway was mapped RF ablation was performed. Occasional junctional beats noted of the septum. This area was then connected septum to the Rivas sinus floor and the roof with RF ablations Thereafter both and height is Isuprel as well as in the baseline state and during the washout. No further SVT to be induced The atrial tachycardia, long RP was still induced, nonsustained However this long RP tachycardia did not induce AV lana reentry any further IS a then removed Isuprel was stopped and patient was transferred back to telemetry
[2022-11-27 18:56] VITALS: RESP 18
[2022-11-27] MEDS: FLECAINIDE 50 MG TAB PO SCH (20:24)
[2022-11-27 21:32] LABS: Basophils % (A) 0 %; Eosinophils # (A) 0.1 k/uL (0-0.7); Eosinophils % (A) 2 %; HCT 46.2 % (39.0-53.0); HGB 15.7 gm/dL (13.0-17.5); Lymphocytes # (A) 1.7 k/uL (1.0-4.8); Lymphocytes % (A) 23 %; MCH 28.7 pg (25.0-35.0); MCV 84.4 fL (80.0-100.0); Mean Platelet Volume 8.2; Monocytes # (A) 0.5 k/uL (0-1.0); Monocytes % (A) 7 %; Neutrophils # (A) 4.8 k/uL (1.3-7.7); Neutrophils % (A) 66 %; Platelet Count 145 k/uL (150-450); RBC 5.47 m/uL (4.30-5.90); RDW 13.4 % (11.5-15.5); WBC 7.2 k/uL (3.8-10.6)
[2022-11-27 22:16] LABS: African American GFR (CKD) >90 (>60 ml/min/1.73 sqM); Anion Gap 7 mmol/L; Blood Urea Nitrogen 15 mg/dL (9-20); Calcium 8.1 mg/dL (8.4-10.2); Carbon Dioxide 24 mmol/L (22-30); Chloride 107 mmol/L (98-107); Glucose 86 mg/dL (74-99); Non-African American GFR(CKD) >90 (>60 ml/min/1.73 sqM); Potassium 3.8 mmol/L (3.5-5.1); Sodium 138 mmol/L (137-145)
[2022-11-28] MEDS: SODIUM CHLORIDE 0.9% 1,000 ML IV SCH (08:02)
[2022-11-28 08:37] VITALS: BP 147/78; PULSE 70; TEMP 98.2
[2022-11-28] MEDS ORDERED: METOPROLOL SUCCINATE (ER) 50 MG TAB.ER.24H PO SCH (09:00)
[2022-11-28] MEDS: FLECAINIDE 50 MG TAB PO SCH (09:32)
--- NOTE | 2022-11-28 10:58 | P.DS ---
Providers Attending physician: Dario Cote Primary care physician: Nehemias Sanchez DO Hospital Course: This is a 52-year-old male who follows in the office with Dr. De Jesus who underwent EP study yesterday with Dr. 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 fib Future plan Stop digoxin Start flecainide 50 mg twice daily and metoprolol to continue A. fib ablation after 3 months Patient should start ELIQUIS one month prior to the procedure and take it on the day of the procedure also Hold flecainide and metoprolol 2 days prior to A. fib ablation procedure After pulmonary vein isolation of full diagnostic EP study to look for any residual SVT and atrial tachycardia The patient was examined this morning at the bedside. Patient is doing well post procedure. He denies chest pain or pressure. Denies SOB. Vital signs are stable. The patient was deemed stable for discharge home today per Dr. De Jesus. He is to follow up on an outpatient basis. Please see EMR for further hospital course details. Discharge diagnosis 1. 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 Successful slow pathway ablation, tachycardia rendered noninducible 3. SVT, long RP, possibly a septal atrial tachycardia with earliest activation in the coronary sinus that would induce AV lana reentry Nurse practitioner note has been reviewed by physician. Signing provider agrees with the documented findings, assessment, and plan of care. Plan - Discharge Summary Discharge Rx Participant: No New Discharge Prescriptions: New Flecainide [Tambocor] 50 mg PO Q12HR #180 tablet Discontinued Digoxin 250 mcg PO DAILY Apixaban [Eliquis] 5 mg PO BID No Action Metoprolol Succinate (ER) [Toprol Xl] 50 mg PO DAILY Multivitamins, Thera [Multivitamin (formulary)] 1 tab PO DAILY Discharge Medication List Metoprolol Succinate (ER) [Toprol Xl] 50 mg PO DAILY 10/29/22 [History] Multivitamins, Thera [Multivitamin (formulary)] 1 tab PO DAILY 10/29/22 [History] Flecainide [Tambocor] 50 mg PO Q12HR #180 tablet 11/27/22 [Rx] Follow up Appointment(s)/Referral(s): Candido De Jesus DO [STAFF PHYSICIAN] - 12/10/22 2:30 pm Patient Instructions/Handouts: Cardiac Ablation (DC) Activity/Diet/Wound Care/Special Instructions: Post EP study - Ablation instructions 1. Keep access sites dry for 2 days. 2. No heavy lifting or straining for 2 days. 3. Avoid bending the hips repeatedly for 2 days. 4. You may go up and down stairs slowly Call if the following is noted 1. Bleeding, increasing swelling or pain at the access sites. 2. Increasing chest discomfort, especially upon taking a deep breath. 3. Increasing shortness of breath, at rest or with exertion. 4. Undue cough / phlegm 5. Difficulty or pain while swallowing. 6. Pain or change in color in the extremities. 7. Fever, chills, rigors. 8. Increasing headache or neurologic symptoms. 9. Dizziness, fainting, palpitations Stop ELIQUIS Stop digoxin Continue metoprolol succinate 50 mg by mouth daily Start flecainide 50 mg twice daily Follow-up with Dr. De Jesus in 1-2 weeks no work until follow up with Dr De Jesus Discharge Disposition: HOME SELF-CARE
== END 2022-11-28 11:00 | disposition home or self-care (01) ==
LOC: CATHEP 11:54 → 6NMEDSUR 16:50 → CATHEP 11-28 11:00
PROVIDERS: ATTEND Internal Medicine Clinical Cardiac Electrophysiology
DX: I47.1 Supraventricular tachycardia (principal); I48.0 Paroxysmal atrial fibrillation; I44.1 Atrioventricular block, second degree; Z79.01 Long term (current) use of anticoagulants
CPT/HCPCS: 93653; 92960; 93623; 86900; 86901; 80048; 85025; 86850; C1894; C1769 ×2; C1760; C1730 ×3; C1732; J2001; J1644; J0131

== ENCOUNTER 2023-02-26 09:10 | Day surgery (SDC) | payer BC ==
[2023-02-26] MEDS: SODIUM CHLORIDE 0.9% 1,000 ML IV SCH (09:33)
[2023-02-26 09:53] LABS: Basophils % (A) 1 %; Eosinophils # (A) 0.1 k/uL (0-0.7); Eosinophils % (A) 2 %; HCT 47.3 % (39.0-53.0); HGB 16.2 gm/dL (13.0-17.5); Lymphocytes # (A) 1.9 k/uL (1.0-4.8); Lymphocytes % (A) 35 %; MCH 29.1 pg (25.0-35.0); MCHC 34.3 g/dL (31.0-37.0); MCV 84.8 fL (80.0-100.0); Mean Platelet Volume 8.1; Monocytes # (A) 0.4 k/uL (0-1.0); Monocytes % (A) 8 %; Neutrophils # (A) 2.9 k/uL (1.3-7.7); Neutrophils % (A) 52 %; Platelet Count 133 k/uL (150-450); RBC 5.58 m/uL (4.30-5.90); RDW 13.5 % (11.5-15.5); WBC 5.5 k/uL (3.8-10.6)
[2023-02-26 10:09] LABS: African American GFR (CKD) >90 (>60 ml/min/1.73 sqM); Anion Gap 8 mmol/L; Blood Urea Nitrogen 18 mg/dL (9-20); Calcium 9.4 mg/dL (8.4-10.2); Carbon Dioxide 24 mmol/L (22-30); Chloride 109 mmol/L (98-107); Glucose 94 mg/dL (74-99); Non-African American GFR(CKD) >90 (>60 ml/min/1.73 sqM); Sodium 141 mmol/L (137-145)
[2023-02-26 10:29] LABS: Potassium 4.8 mmol/L (3.5-5.1)
[2023-02-26] MEDS ORDERED: LIDOCAINE 1% INJ 10MG/ML (20 ML MDV) ONE (10:36)
[2023-02-26] MEDS ORDERED: HEPARIN SODIUM,PORCINE 10,000 UNIT/ML 1 ML VIAL ONE (11:08)
[2023-02-26] MEDS ORDERED: HEPARIN SODIUM,PORCINE 5,000 UNIT/ML 1 ML VIAL ONE (11:08)
[2023-02-26] MEDS ORDERED: ONDANSETRON 4 MG/2 ML VIAL ONE (11:08)
[2023-02-26] MEDS ORDERED: SUCCINYLCHOLINE CHLORIDE 200 MG/10 ML VIAL IV ONE (11:08)
[2023-02-26] MEDS ORDERED: fentaNYL (PF) 50 MCG/ML 2 ML AMP ONE (11:08)
[2023-02-26] MEDS ORDERED: PROPOFOL 10 MG/ML 20 ML VIAL IV ONE (11:08)
[2023-02-26] MEDS ORDERED: MIDAZOLAM 2 MG/2 ML VIAL ONE (11:08)
[2023-02-26] MEDS ORDERED: PHENYLEPHRINE-0.9% NACL SYG 1,000 MCG/10 ML SYRINGE ONE (11:08)
[2023-02-26] MEDS ORDERED: LIDOCAINE 2% INJ 20 MG/ML (2 ML VIAL) ONE (11:08)
--- NOTE | 2023-02-26 11:15 | P.HPCAR ---
History of Present Illness This is Dr. 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 This required IV amiodarone therapy to suppress A. fib in order to complete slow pathway ablation Paroxysmal A. fib with RVR Possible septal atrial tachycardia with RVR PLAN: Proceed with A. fib ablation with pulmonary vein isolation and ablation of the left atrial septum Thereafter diagnostic EP study to look for any inducible septal atrial tachycardia with concentric activation in the CS poles HPI Patient continues to have episodes of palpitations despite flecainide He denies any fever chills cough expectoration No chest discomfort ROS: No fever chills or rigors, no cough, phlegm or expectoration, no nausea, vomiting or diarrhea, no hematuria, dysuria, no musculoskeletal complaints, no strokes or seizures, no skin lesions. EXAMINATION: 138/80 mmHg pulse rate in the 60s and 70s afebrile Heart sounds S1 and S2 are normal Breath sounds are clear REVIEW OF LABS, ECG & MEDICAL DATA White count 5.5 thousand, hematocrit 47.3. Platelet count 133,000 Normal electrolytes Physical Exam Vitals: Vital Signs Temp Pulse Resp BP Pulse Ox 02/26/23 09:32 97.8 F 69 18 138/80 96 Intake and Output 02/25/23 02/26/23 02/26/23 22:59 06:59 14:59 Intake Total 100 Balance 100 Intake: IV 100 Other: Weight 108 kg Past Medical History Past Medical History: Atrial Fibrillation Additional Past Medical History / Comment(s): svt, see Dr Cote's H & P History of Any Multi-Drug Resistant Organisms: None Reported Past Surgical History: Cardiac Ablation, Orthopedic Surgery Past Anesthesia/Blood Transfusion Reactions: No Reported Reaction Smoking Status: Never smoker - Past Family History Father Family Medical History: Congestive Heart Failure (CHF), Renal Disease Mother Family Medical History: Dementia Physical Examination Vital Signs Temp Pulse Resp BP Pulse Ox 02/26/23 09:32 97.8 F 69 18 138/80 96 Intake and Output 02/25/23 02/26/23 02/26/23 22:59 06:59 14:59 Intake Total 100 Balance 100 Intake: IV 100 Other: Weight 108 kg Results 02/26/23 09:28 02/26/23 09:28 CBC 02/26/23 Range/Units 09:28 WBC 5.5 (3.8-10.6) k/uL RBC 5.58 (4.30-5.90) m/uL Hgb 16.2 (13.0-17.5) gm/dL Hct 47.3 (39.0-53.0) % Plt Count 133 L (150-450) k/uL Comprehensive Metabolic Panel 02/26/23 Range/Units 09:28 Sodium 141 (137-145) mmol/L Potassium 4.8 (3.5-5.1) mmol/L Chloride 109 H (98-107) mmol/L Carbon Dioxide 24 (22-30) mmol/L BUN 18 (9-20) mg/dL Creatinine 0.89 (0.66-1.25) mg/dL Glucose 94 (74-99) mg/dL Calcium 9.4 (8.4-10.2) mg/dL Current Medications Generic Name Dose Route Start Last Admin Trade Name Tegan PRN Reason Stop Dose Admin Sodium Chloride 1,000 mls @ 20 mls/hr 02/26/23 06:01 02/26/23 09:33 Saline 0.9% IV 03/28/23 06:02 100 mls .Q24H IRMA Administration Intake and Output 02/25/23 02/26/23 02/26/23 22:59 06:59 14:59 Intake Total 100 Balance 100 Intake: IV 100 Other: Weight 108 kg Patient Weight 02/27/23 06:59 Weight 108 kg 02/26/23 09:28 02/26/23 09:28
[2023-02-26] MEDS ORDERED: HEPARIN SOD,PORK IN 0.45% NACL 25,000 UNIT in 0.45% NACL 1 250ML.BAG IV ONE (11:41)
[2023-02-26] MEDS ORDERED: LIDOCAINE 1% INJ 10MG/ML (20 ML MDV) SQ ONE (11:57)
[2023-02-26] MEDS ORDERED: IOPAMIDOL-370 100ML BTL INJ ONE (14:00)
[2023-02-26] MEDS ORDERED: ACETAMINOPHEN IV (For NPO) 1,000 MG in EMPTY BAG 1 BAG IVPB ONE (14:07)
[2023-02-26] MEDS ORDERED: ACETAMINOPHEN TAB 325 MG TAB PO PRN (14:07)
--- NOTE | 2023-02-26 14:12 | P.EPPROC ---
- EP Procedure Note Electrophysiology Procedure Note: PROCEDURE A. fib ablation/PVI and left atrial septal ablation DIAGNOSIS Paroxysmal Atrial fibrillation, symptomatic, refractory to therapy RESULT No left atrial appendage mass seen on intracardiac echo, Thickened pericardium consistent with chronic pericarditis, minimal effusion Successful A. fib ablation/pulmonary vein isolation of all veins using cryo- ablation Complete entrance block in all 4 veins confirmed No evidence for phrenic nerve injury Left atrial septal ablation Esophageal deflection NO PROCEDURE DETAILS Written informed consent prior to procedure. Patient brought to the EP lab. General anesthesia given. Heparin administered. A city maintained above 300 seconds Both groins prepped and draped per protocol and venous sheaths placed. Esophagus intubated, circa catheter for temperature monitoring an endoscope for possible esophageal deflection. Phrenic nerve monitoring performed. Esophageal temperature monitoring performed. Esophageal deflection performed if circa catheter overlapping with the balloon or circa temperature less than 27.5C Intracardiac echocardiography performed. Pericardium evaluated. Left atrial appendage evaluated. Left atrium evaluated along with pulmonary veins Transseptal catheterization performed under fluoroscopic guidance and intracardiac echo guidance Cryoablation sheath exchanged, balloon catheter along with achieve catheter placed in the left atrium. Pulmonary veins isolated in the following sequence: Left superior pulmonary vein followed by left inferior pulmonary vein, followed by right inferior pulmonary vein and lastly right superior pulmonary vein. Phrenic nerve stimulation along with capture thresholds within the SVC and right superior pulmonary vein to identify the phrenic nerve proximity to the cryo- balloon. Pulmonary veins isolated and confirmed with entrance and exit block. Phrenic nerve integrity confirmed at the end of the procedure Ablation of the left atrial septum performed with cannulation of the superior branch of the right inferior AND the inferior branch of the right superior vein to achieve ablation of the posterior septum of the left atrium. Ablation of electrograms confirmed He had large right-sided pulmonary veins as well as left-sided pulmonary veins. The right inferior pulmonary vein underwent cryoablation twice cannulating the upper and lower branches The right superior pulmonary vein was also isolated successfully to cryoablation's 2 lesions each were applied to the left-sided veins to Diagnostic catheters for the high right atrium, His bundle, coronary sinus placed. LA and RA pressures recorded RA pressure: LA pressure: Diagnostic EP study with coronary sinus pacing and recording Baseline measurements: Venous sheaths were removed and hemostasis assured with a closure device. Patient extubated and transferred to recovery PROCEDURES PERFORMED Diagnostic EP study CS pacing and recording Left and right transseptal catheterization Catheter the mapping of the tachycardia Intracardiac echocardiography Pulmonary vein isolation with transseptal and comprehensive EPS, [id number] ablation, left atrium, [id number]
[2023-02-26] MEDS ORDERED: ONDANSETRON 4 MG/2 ML VIAL IVP ONE (15:29)
[2023-02-26] MEDS ORDERED: LORazepam 1 MG TAB PO STA (20:08)
[2023-02-26] MEDS: APIXABAN 5 MG TAB PO SCH (20:26)
[2023-02-27] MEDS: SODIUM CHLORIDE 0.9% 1,000 ML IV SCH (06:40)
[2023-02-27] MEDS ORDERED: MULTIVITAMINS, THERA 1 EACH TAB PO SCH (09:00)
--- NOTE | 2023-02-27 09:24 | P.DS ---
Providers Attending physician: Dario Cote Primary care physician: Nehemias Sanchez DO Assessment: The patient is a 52-year-old male who underwent pulmonary vein isolation with Dr. Cote on 02/26/2023. Successful A. fib ablation/pulmonary vein isolation of all veins using cryoablation with complete entrance block of all 4 veins confirmed. Thickened pericardium noted on intracardiac echo noting chronic pericarditis. Minimal effusion. The patient did well overnight. mild discomfort in the right groin. No chest pain or orthopnea. GENERAL: Well-appearing, well-nourished and in no acute distress. NECK: Supple without JVD or thyromegaly. LUNGS: Breath sounds clear to auscultation bilaterally. Respiration equal and unlabored. No wheezes, rales or rhonchi. HEART: Regular rate and rhythm without murmurs, rubs or gallops. S1 and S2 heard. EXTREMITIES: Normal range of motion, no edema. No clubbing or cyanosis. Peripheral pulses intact and strong. Mild bruising in right groin TELEMETRY: Sinus rhythm overnight IMPRESSION: Paroxysmal atrial fibrillation Status post pulmonary vein isolation Chronic pericarditis PLAN: Discharge on home medications Outpatient follow-up with Dr. Cote/nurse practitioner in 1-2 weeks I am dictating on behalf of Dr Dario Cote's history/physical and assessment/plan. Plan - Discharge Summary Discharge Rx Participant: No New Discharge Prescriptions: Discontinued Metoprolol Succinate (ER) [Toprol Xl] 50 mg PO DAILY Flecainide [Tambocor] 50 mg PO Q12HR #180 tablet No Action Multivitamins, Thera [Multivitamin (formulary)] 1 tab PO DAILY Apixaban [Eliquis] 5 mg PO BID Discharge Medication List Multivitamins, Thera [Multivitamin (formulary)] 1 tab PO DAILY 10/29/22 [History] Apixaban [Eliquis] 5 mg PO BID 02/19/23 [History] Follow up Appointment(s)/Referral(s): Candido De Jesus DO [STAFF PHYSICIAN] - 1 Week Patient Instructions/Handouts: Cardiac Ablation (DC) Activity/Diet/Wound Care/Special Instructions: Post EP study - Ablation instructions 1. Keep access sites dry for 2 days. 2. No heavy lifting or straining for 2 days. 3. Avoid bending the hips repeatedly for 2 days. 4. You may go up and down stairs slowly Call if the following is noted 1. Bleeding, increasing swelling or pain at the access sites. 2. Increasing chest discomfort, especially upon taking a deep breath. 3. Increasing shortness of breath, at rest or with exertion. 4. Undue cough / phlegm 5. Difficulty or pain while swallowing. 6. Pain or change in color in the extremities. 7. Fever, chills, rigors. 8. Increasing headache or neurologic symptoms. 9. Dizziness, fainting, palpitations Stop to prolong Stop flecainide Continue ELIQUIS for a minimum of 3 months Discharge Disposition: HOME SELF-CARE
[2023-02-27 09:29] VITALS: BP 119/84; PULSE 88; RESP 18; TEMP 97.5
[2023-02-27] MEDS: APIXABAN 5 MG TAB PO SCH (10:08)
== END 2023-02-27 10:28 | disposition home or self-care (01) ==
LOC: CATHEP 09:10 → 6NMEDSUR 14:46 → CATHEP 02-27 10:28
PROVIDERS: ATTEND Internal Medicine Clinical Cardiac Electrophysiology
DX: I48.0 Paroxysmal atrial fibrillation (principal); I31.9 Disease of pericardium, unspecified; I10 Essential (primary) hypertension; G47.33 Obstructive sleep apnea (adult) (pediatric); Z79.01 Long term (current) use of anticoagulants; Z79.899 Other long term (current) drug therapy
CPT/HCPCS: 93656; 93657; 86900; 86901; 80048; 85025; 86850; C1759; C1894 ×2; C1769 ×3; C1760; C1730 ×2; C1893; C1733; C1766; J2250; J0330; J1644 ×3; J2405; J2001 ×2; J3010; J2704; Q9967; J2371